=== PATIENT | male | born 1950 | race Caucasian/White ===

== ENCOUNTER → 2016-09-30 | Outpatient (CLI) | payer BC ==
[~2016-09-30] MED LIST: ALL300 PO; ASPI-232 PO; GLC5 PO; LOSA50TA54 PO; METF-384 PO; PANT40TA PO; SILD100T PO; SIMV-151 PO; SYMIN/8045 INH
== END | disposition home or self-care (01) ==
LOC: C.LAB1850 13:18
PROVIDERS: ATTEND Urology
DX: R97.20 Elevated prostate specific antigen [PSA] (principal)

== ENCOUNTER → 2017-01-13 | Outpatient (CLI) | payer BC ==
[2017-01-13 12:57] LABS: CALCIUM 8.9 mg/dl (8.5-10.1)
[2017-01-13 12:58] LABS: ALT/SGPT 31 U/L (12-78); BLOOD UREA NITROGEN 8 mg/dl (7-18); BUN/CREATININE RATIO 9.5 (10-20); CARBON DIOXIDE 22 mmol/L (21-32); CHLORIDE 106 mmol/L (98-107); CHOLESTEROL 169 mg/dl (0-200); GLUCOSE 111 mg/dl (70-99); POTASSIUM 4.4 mmol/L (3.5-5.1); SODIUM 140 mmol/L (136-145); TRIGLYCERIDES 185 mg/dl (0-150); VERY LOW DENSITY LIPOPROT CALC 37 mg/dl
[2017-01-13 13:07] LABS: ALKALINE PHOSPHATASE 83 U/L (45-117); AST/SGOT 23 U/L (15-37); CHOLESTEROL/HDL RATIO 3.7; FERRITIN 53.8 ng/ml (8.0-388.0); HDL CHOLESTEROL 46 mg/dl; LDL CHOLESTEROL CALCULATED 86 mg/dl; TOTAL IRON BINDING CAPACITY 456 mcg/dl (250-450)
[2017-01-13 13:16] LABS: ESTIMATED AVERAGE GLUCOSE 108 mg/dl; HA1C FLAG Normal (Normal)
[2017-01-13 13:36] LABS: BASO % 0.3 %; BASO ABS # 0.02 K/uL (0-0.2); COMPLETE YES; EOS % 4.7 %; HEMATOCRIT 46.8 % (42-52); IG% 0.3 %; LYMPH % 23.8 %; LYMPH ABS # 1.42 K/uL (1.2-3.4); MEAN CELL VOLUME 90.2 fL (80-100); MEAN CORPUSCULAR HEMOGLOBIN 30.1 pg (25-34); MEAN CORPUSCULAR HGB CONC 33.3 g/dl (32-36); MEAN PLATELET VOLUME 11.2 fL (7.4-10.4); MONO % 9.9 %; PLATELET COUNT 223 K/uL (130-400); RED BLOOD COUNT 5.19 M/uL (4.7-6.1); WHITE BLOOD COUNT 5.96 K/uL (4.8-10.8)
== END | disposition home or self-care (01) ==
LOC: C.LABBFT 10:41
PROVIDERS: ATTEND Internal Medicine
DX: E11.29 Type 2 diabetes mellitus with other diabetic kidney complication (principal); D64.9 Anemia, unspecified

== ENCOUNTER → 2017-01-14 | Outpatient (CLI) | payer BC ==
--- NOTE | 2017-01-14 14:46 | DIAGNOSTIC IMAGING REPORT ---
CHEST 2 VIEWS ROUTINE CLINICAL HISTORY: COUGH dyspnea COMPARISON STUDY: No previous studies for comparison. FINDINGS: The bones soft tissues and hemidiaphragms are normal. The cardiomediastinal silhouette is normal. The lungs are clear. The pulmonary vasculature is normal. IMPRESSION: Negative chest. Electronically signed by: Maverikc Frost M.D. 01/14/2017 2:44 PM Dictated Date/Time: 01/14/2017 2:44 PM
== END | disposition home or self-care (01) ==
LOC: C.RAD1850 14:33
PROVIDERS: ATTEND Internal Medicine
DX: R05 Cough (principal)

== ENCOUNTER → 2017-01-17 | Outpatient (CLI) | payer BC ==
[2017-01-17 14:38] LABS: RATIO 11.2 mcg/mg (0-30.0)
== END | disposition home or self-care (01) ==
LOC: C.LABSPEC 12:34
PROVIDERS: ATTEND Internal Medicine
DX: E11.29 Type 2 diabetes mellitus with other diabetic kidney complication (principal)

== ENCOUNTER → 2017-01-28 | Outpatient (CLI) | payer BC ==
--- NOTE | 2017-01-28 09:49 | DIAGNOSTIC IMAGING REPORT ---
CHEST CT WITHOUT CONTRAST CT DOSE: 492.64 mGy.cm HISTORY: Dyspnea R05 [id number] TECHNIQUE: Multiaxial CT images of the chest were performed without contrast. COMPARISON: None. FINDINGS: Subtle interstitial change in the right midlung region. No well-defined focal infiltrative process. Slight peribronchial prominence throughout both hemithoraces. No significant hilar or mediastinal adenopathy. Several calcified hilar and mediastinal nodes. Mild atherosclerotic change thoracic aorta with no evidence for aneurysm. IMPRESSION: 1. Mild nonspecific interstitial change primarily in the right upper to right mid lung regions. 2. No evidence for consolidative infiltrative process. 3. Diagnostic considerations include a low-grade nonspecific interstitial pneumonitis versus nonspecific interstitial pulmonary fibrotic change. 4. Chronic granulomatous change as discussed. Electronically signed by: Maverick Frost M.D. 01/28/2017 9:47 AM Dictated Date/Time: 01/28/2017 9:44 AM
== END | disposition home or self-care (01) ==
LOC: C.CTS 09:29
PROVIDERS: ATTEND Internal Medicine
DX: R05 Cough (principal)

== ENCOUNTER → 2017-02-28 | Day surgery (SDC) | payer BC ==
[2017-02-11 13:21] VITALS: Ht 185.4 cm; Wt 95.5 kg
[~2017-02-28] VITALS: Ht 185.4 cm; Wt 95.5 kg
[~2017-02-28] MED LIST changes: +LIDOCAINE HCL 2% 2 ML VIAL (20MG/ML) ONE; +PROPOFOL IV EMULSION 10 MG/ML 20 ML VIAL IV ONE; +SODIUM CHLORIDE 0.9% 500ML 500 ML IV ONE
--- NOTE | 2017-02-28 10:58 | Endo History and Physical ---
History & Physical Date of Service: Feb 28, 2017. Chief Complaint: SCREENING FOR COLON CANCER Referring Physician: DR. MEZA History of Present Illness 66 yo CM who presents for screening colonoscopy. Past Medical History Diabetes, High Cholesterol, Hypertension Past Surgical History Hx Cardiac Surgery: No Hx Internal Defibrillator: No Hx Pacemaker: No Hx Abdominal Surgery: No Hx of Implantable Prosthesis: No Hx Post-Op Nausea and Vomiting: No Hx Cancer Surgery: No Hx Thoracic Surgery: No Hx Orthopedic: Yes (LT/RT GANGLION CYST REMOVAL) Hx Urinary Tract Surgery: No Family History None Social History Smoking Status: Former Smoker Hx Substance Use: No Hx Alcohol Use: No Allergies Coded Allergies: No Known Allergies (Verified , 02/28/17) Current Medications Reported Home Medications Medications Dose Route/Sig Max Daily Dose Days Date Category Symbicort 80/4.5 Inhaler (Budesonide/Formoterol Fumarate) Aero 2 Puffs INH BID 02/28/17 Reported Protonix (Pantoprazole Sodium) 40 Mg Tab 40 Mg PO QPM 02/11/17 Reported Viagra (Sildenafil Citrate) 100 Mg Tab 100 Mg PO PRN 06/21/14 Reported Cozaar (Losartan Potassium) 50 Mg Tab 50 Mg PO QAM 06/21/14 Reported Simvastatin 20 Mg Tab 1 Tab PO HS 06/21/14 Reported Aspir-81 (Aspirin) 81 Mg Tab 1 Tab PO QPM 06/21/14 Reported Allopurinol 300 Mg Tab 1 Tab PO QAM 06/21/14 Reported Glucophage (Metformin Hcl) 1,000 Mg Tab 1,000 Mg PO BID 06/21/14 Reported Glipizide 5 Mg Tab 5 Mg PO QPM 06/21/14 Reported Vital Signs Weight (Kilograms): 95.45 Height (Feet): 6 Height (Inches): 1 Date Time Temp Pulse Resp B/P (MAP) Pulse Ox O2 Delivery O2 Flow Rate FiO2 02/28/17 10:14 36.6 73 18 151/87 (108) 96 Room Air Physical Exam General Appearance: WD/WN, no apparent distress Respiratory/Chest: Auscultation: breath sounds normal Cardiovascular: Heart Auscultation: RRR Abdomen: Bowel Sounds: normal Inspection & Palpation: soft, non-distended, no tenderness, guarding & rebound Assessment and Plan Assessment: 66 yo CM who presents for screening colonoscopy. Plan: Proceed with colonoscopy.
--- NOTE | 2017-02-28 11:44 | Discharge Instructions ---
Endoscopy Patient Instructions Date / Procedure(s) Performed Feb 28, 2017. Colonoscopy Allergy Information Coded Allergies: No Known Allergies (Verified , 02/28/17) Discharge Date / Findings Feb 28, 2017. Rectal polyps Internal hemorrhoids Medication Instructions Stopped Medication(s): ASPIRIN LAST DOSE 02/21/17 OK to resume all medications today as prescribed Reported Home Medications Medications Dose Route/Sig Max Daily Dose Days Date Category Symbicort 80/4.5 Inhaler (Budesonide/Formoterol Fumarate) Aero 2 Puffs INH BID 02/28/17 Reported Protonix (Pantoprazole Sodium) 40 Mg Tab 40 Mg PO QPM 02/11/17 Reported Viagra (Sildenafil Citrate) 100 Mg Tab 100 Mg PO PRN 06/21/14 Reported Cozaar (Losartan Potassium) 50 Mg Tab 50 Mg PO QAM 06/21/14 Reported Simvastatin 20 Mg Tab 1 Tab PO HS 06/21/14 Reported Aspir-81 (Aspirin) 81 Mg Tab 1 Tab PO QPM 06/21/14 Reported Allopurinol 300 Mg Tab 1 Tab PO QAM 06/21/14 Reported Glucophage (Metformin Hcl) 1,000 Mg Tab 1,000 Mg PO BID 06/21/14 Reported Glipizide 5 Mg Tab 5 Mg PO QPM 06/21/14 Reported Provider Instructions Activity Restrictions - No exercising or heavy lifting for 24 hours. - Do not drink alcohol the day of the procedure. - Do not drive a car or operate machinery until the day after the procedure. - Do not make any important decisions or sign important papers in 24 hours after the procedure. Following Day: - Return to full activity which may include returning to work/school. Diet Start your diet with liquids and light foods (jello, soup, juice, toast). Then eat your usual diet if not nauseated. Treatment For Common After Affects For mild abdominal pain, bloating, or excessive gas: - Rest - Eat lightly - Lie on right side Follow-Up Information Follow-up with DR. MEZA as scheduled Anesthesia Information What You Should Know You have had a procedure that required some medicine to reduce anxiety and discomfort. This treatment is called moderate sedation. After receiving the treatment, you may be sleepy, but you will be able to breathe on your own. The effects of the treatment may last for several hours. Follow these instructions along with Activity/Diet recommendations noted above: * Do NOT do anything where dizziness or clumsiness would be dangerous. * Rest quietly at home today, then you can be up and about tomorrow. * Have a responsible person stay with you the rest of today. * You may have had an I.V. today. If so, you may take the dressing off later today. Recommendations Call your doctor if: * Trouble breathing * Continuous vomiting for more than 24 hours * Temperature above 101 degrees * Severe abdominal pain or bloating * Pain not relieved by pain medicine ordered * There is increased drainage or redness from any incision * A large amount of rectal bleeding greater than 2-3 tablespoons. (If you had a polyp/s removed or have hemorrhoids, a small amount of blood - from the rectum is to be expected.) * You have any unanswered questions or concerns. IN THE EVENT OF A SERIOUS EMERGENCY, GO TO THE NEAREST EMERGENCY ROOM Your discharge instructions were prepared by provider Alex Myers. Patient Instructions Signature Page Donavan Downs Patient (or Guardian) Signature/Date: I have read and understand the instructions given to me by my caregivers. Caregiver/RN/Doctor Signature/Date: The above-named patient and/or guardian has received patient instructions on this date. + Original Patient Signature Page (only) stays with chart. Please make copy for patient.
--- NOTE | 2017-02-28 11:49 | GI REPORT ---
Procedure Date: 02/28/2017 10:28 AM Procedure: Colonoscopy Indications: Screening for colorectal malignant neoplasm Medicines: Monitored Anesthesia Care Complications: No immediate complications. Estimated Blood Loss: Estimated blood loss: none. Procedure: Pre-Anesthesia Assessment: - Prior to the procedure, a History and Physical was performed, and patient medications and allergies were reviewed. The patient's tolerance of previous anesthesia was also reviewed. The risks and benefits of the procedure and the sedation options and risks were discussed with the patient. All questions were answered, and informed consent was obtained. Prior Anticoagulants: The patient has taken aspirin, last dose was 7 days prior to procedure. ASA Grade Assessment: III - A patient with severe systemic disease. After reviewing the risks and benefits, the patient was deemed in satisfactory condition to undergo the procedure. After I obtained informed consent, the scope was passed under direct vision. Throughout the procedure, the patient's blood pressure, pulse, and oxygen saturations were monitored continuously. The scope was introduced through the anus and advanced to the terminal ileum. The colonoscopy was performed without difficulty. The patient tolerated the procedure well. The quality of the bowel preparation was good. The terminal ileum, ileocecal valve, appendiceal orifice, and rectum were photographed. Findings: Two sessile polyps were found in the rectum. The polyps were 2 to 4 mm in size. These polyps were removed with a cold snare. Resection and retrieval were complete. Non-bleeding internal hemorrhoids were found during retroflexion. The hemorrhoids were small. Impression: - Two 2 to 4 mm polyps in the rectum, removed with a cold snare. Resected and retrieved. - Non-bleeding internal hemorrhoids. Recommendation: - Resume previous diet. - Continue present medications. - Repeat colonoscopy for surveillance based on pathology results. - Return to primary care physician as previously scheduled. Alex Myers DO 02/28/2017 11:48:48 AM This report has been signed electronically. Note Initiated On: 02/28/2017 10:28 AM I attest to the content of the Intraoperative Record and orders documented therein, exceptions below
[2017-02-28 11:52] VITALS: BP 139/97; PULSE 73; O2SAT 96
--- NOTE | 2017-02-28 11:57 | Anesthesiology Progress Note ---
Anesthesia Post Op Note Date & Time Feb 28, 2017 at 11:57 Vital Signs Pain Intensity: 0 Vital Signs Past 12 Hours Date Time Temp Pulse Resp B/P (MAP) Pulse Ox O2 Delivery O2 Flow Rate FiO2 02/28/17 11:52 73 20 139/97 (111) 96 Room Air 02/28/17 11:35 73 18 137/75 (95) 96 Room Air 02/28/17 11:20 73 16 106/60 (75) 96 Room Air 02/28/17 10:14 36.6 73 18 151/87 (108) 96 Room Air Notes Mental Status: alert / awake / arousable, participated in evaluation Pt Amnestic to Procedure: Yes Nausea / Vomiting: adequately controlled Pain: adequately controlled Airway Patency, RR, SpO2: stable & adequate BP & HR: stable & adequate Hydration State: stable & adequate Anesthetic Complications: no major complications apparent
== END | disposition home or self-care (01) ==
LOC: C.GI 09:45
PROVIDERS: ATTEND Internal Medicine
DX: Z12.11 Encounter for screening for malignant neoplasm of colon (principal); K62.1 Rectal polyp; K64.8 Other hemorrhoids; E11.9 Type 2 diabetes mellitus without complications; E78.00 Pure hypercholesterolemia, unspecified; I10 Essential (primary) hypertension; Z87.891 Personal history of nicotine dependence; Z79.82 Long term (current) use of aspirin; Z79.84 Long term (current) use of oral hypoglycemic drugs; E78.5 Hyperlipidemia, unspecified

== ENCOUNTER → 2017-07-20 | Outpatient (CLI) | payer BC ==
[~2017-07-20] MED LIST changes: -LIDOCAINE HCL 2% 2 ML VIAL (20MG/ML) ONE; -PROPOFOL IV EMULSION 10 MG/ML 20 ML VIAL IV ONE; -SODIUM CHLORIDE 0.9% 500ML 500 ML IV ONE
[2017-07-20 12:26] LABS: HEMATOCRIT 45.1 % (42-52); MEAN CORPUSCULAR HEMOGLOBIN 28.7 pg (25-34); MEAN CORPUSCULAR HGB CONC 31.9 g/dl (32-36); MEAN PLATELET VOLUME 10.9 fL (7.4-10.4); PLATELET COUNT 235 K/uL (130-400); RED BLOOD COUNT 5.01 M/uL (4.7-6.1); WHITE BLOOD COUNT 6.94 K/uL (4.8-10.8)
[2017-07-20 13:11] LABS: ESTIMATED AVERAGE GLUCOSE 100 mg/dl; HA1C FLAG Normal (Normal)
[2017-07-20 13:15] LABS: ALT/SGPT 25 U/L (12-78); AST/SGOT 13 U/L (15-37); BLOOD UREA NITROGEN 12 mg/dl (7-18); BUN/CREATININE RATIO 13.3 (10-20); CALCIUM 8.6 mg/dl (8.5-10.1); CARBON DIOXIDE 27 mmol/L (21-32); CHLORIDE 103 mmol/L (98-107); CHOLESTEROL 138 mg/dl (0-200); GLUCOSE 113 mg/dl (70-99); POTASSIUM 4.2 mmol/L (3.5-5.1); SODIUM 135 mmol/L (136-145)
[2017-07-20 13:26] LABS: ALB/GLOB RATIO 0.9 (0.9-2); ALKALINE PHOSPHATASE 75 U/L (45-117); CHOLESTEROL/HDL RATIO 2.2; HDL CHOLESTEROL 63 mg/dl; LDL CHOLESTEROL CALCULATED 57 mg/dl; TRIGLYCERIDES 88 mg/dl (0-150); VERY LOW DENSITY LIPOPROT CALC 18 mg/dl
== END | disposition home or self-care (01) ==
LOC: C.LABBFT 10:22
PROVIDERS: ATTEND Urology
DX: R97.20 Elevated prostate specific antigen [PSA] (principal); E11.29 Type 2 diabetes mellitus with other diabetic kidney complication

== ENCOUNTER → 2017-10-19 | Outpatient (CLI) | payer BC ==
[2017-10-19 12:47] LABS: BLOOD UREA NITROGEN 7 mg/dl (7-18); CREATININE 0.92 mg/dl (0.60-1.40)
== END | disposition home or self-care (01) ==
LOC: C.LABBFT 09:18
PROVIDERS: ATTEND Urology
DX: R97.20 Elevated prostate specific antigen [PSA] (principal); N40.1 Benign prostatic hyperplasia with lower urinary tract symptoms

== ENCOUNTER → 2017-10-31 | Outpatient (CLI) | payer BC ==
[~2017-10-31] MED LIST changes: +GADAVIST IV PRN
--- NOTE | 2017-10-31 11:49 | DIAGNOSTIC IMAGING REPORT ---
PROSTATE MRI COMBO CLINICAL HISTORY: 67 years-old Male presenting with R97.20 Elevated PSA - 6.530. PSA 6.5 ng/mL. TECHNIQUE: Multisequence, multiplanar MR imaging of the prostate was performed before and after the administration of intravenous contrast. Additional postprocessing was performed on a separate [employer] workstation by the radiologist for 3-D volumetric segmentation of the prostate and contouring of region(s) of interest (ALE) for targeting. IV contrast: 9.5 cc intravenous Gadavist COMPARISON: None. FINDINGS: Prostate: The prostate measures 4.8 x 3.9 x 4.1 cm (DynaCAD prostate boundary segmentation volume 42 mL). Moderate changes of benign prostatic hyperplasia. Precontrast T1 weighted imaging demonstrates no evidence of intrinsic T1 hyperintensity to suggest hemorrhage. Suspicious lesion(s) described below: Lesion (DynaCAD ALE) 1: Location: Right posteromedial peripheral zone at the mid gland. The lesion does not extend across the midline. Size: 9 mm (as measured on ADC for PZ lesion and T2WI for TZ lesion) T2W: 4. Circumscribed, homogeneous moderately hypointense lesion. No evidence of extraprostatic extension, seminal vesicle invasion, or neurovascular bundle involvement. DWI: 3. Focal mildly/moderately hypointense on ADC and isointense/mildly hyperintense on high b-value DWI. DCE: Positive. Focal enhancement corresponding to a suspicious finding, earlier or contemporaneous with adjacent normal tissue. PI-RADS: 4. Clinically significant cancer is likely to be present. There is a single focus of nonspecific decreased T2 signal within the left seminal vesicle Bladder: Normal. Bowel: There is extensive sigmoid diverticulosis. There is borderline rectal sigmoid wall thickening. Peritoneum: No free fluid in the pelvis. Lymph nodes: No lymphadenopathy in the visualized portion of the pelvis. Vasculature: Iliac vessels patent. Abdominal wall: Normal. Osseous structures: Normal bone marrow signal intensity. IMPRESSION: 1. 9 mm lesion in the right peripheral zone at the mid gland. PI-RADS: 4. Clinically significant cancer is likely to be present. This lesion has been segmented for targeted biopsy. 2. Benign prostatic hyperplasia. Electronically signed by: Andrew Ambriz M.D. 10/31/2017 11:47 AM Dictated Date/Time: 10/31/2017 11:31 AM
== END | disposition home or self-care (01) ==
LOC: C.MRIBC 09:46
PROVIDERS: ATTEND Urology
DX: R97.20 Elevated prostate specific antigen [PSA] (principal); N40.0 Benign prostatic hyperplasia without lower urinary tract symptoms

== ENCOUNTER → 2017-12-15 | Outpatient (CLI) | payer BC ==
[~2017-12-15] MED LIST changes: -GADAVIST IV PRN
== END | disposition home or self-care (01) ==
LOC: C.PATHSPEC 19:05
PROVIDERS: ATTEND Urology
DX: R97.20 Elevated prostate specific antigen [PSA] (principal); C61 Malignant neoplasm of prostate

== ENCOUNTER 2023-02-03 16:04 | Inpatient (IN) ==
[2023-02-03] MEDS ORDERED: VANCOMYCIN HCL 1,750 MG in SODIUM CHLORIDE 0.9% 500 ML IV ONE (16:53)
[2023-02-03] MEDS ORDERED: PIPERACILLIN/TAZOBACTAM 4.5 GM/120 ML BAG IV ONE (16:53)
[2023-02-03] MEDS ORDERED: VANCOMYCIN CONSULT ACTIVE PRN ×2 (16:53→21:05)
[2023-02-03] MEDS ORDERED: SODIUM CHLORIDE 0.9% 1000ML 1,000 ML IV ONE (16:58)
--- NOTE | 2023-02-03 17:00 | Emergency Department Note ---
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 She started about 3 weeks ago. Tried Neosporin at home but given worsening follow-up with his doctor yesterday and started on a dose of Levaquin last evening. Outpatient x-ray today was concerning for bone infection referred in. Denies fever or chills. States blood sugars been fairly well controlled. Denies a history of resistant infections in the past. PAST MEDICAL HISTORY: As noted above MEDICATIONS: Reviewed home medications SOCIAL HISTORY: , distant former smoker PHYSICAL EXAM: GENERAL: alert and oriented in no acute distress on stretcher Head: normocephalic and atraumatic EYES: No injection, discharge or icterus. NECK: Trachea midline. ENT: Mucous membranes pink and moist. LUNGS: Airway patent. No retractions. Breath sounds clear HEART: Regular rate and rhythm. No chest wall tenderness ABDOMEN: Soft and non-tender, without guarding or rebound. SKIN: Acyanotic, warm, dry EXTREMITIES: Without swelling, tenderness or deformity except for some slight erythema and swelling to the left foot with an approximate 1 to 2 cm ulceration and erythematous wound on the pad of the left great toe. NEUROLOGICAL: No aphasia. No facial droop or slurred speech. Ambulatory. Mild diminished sensation symmetrically bilaterally of the midfoot distal. Patient's laboratory studies and imaging reviewed. Differential includes Cellulitis, abscess, MRSA infection, necrotizing fasciitis, osteomyelitis as well as other pathologies. IMPRESSION/MEDICAL DECISION MAKING: Patient does not appear septic on clinical exam. Blood Gram stain reassuring but recultured today and a surface culture obtained. X-ray reviewed from today in the outpatient setting with evidence of possible osteomyelitis as well as a distal tuft fracture. Inflammatory markers ordered. Broad-spectrum antibiotics ordered in discussion with pharmacy. Discussed with the hospitalist team. They wish me to discuss with the orthopedic team. Discussed with [facility] and reached out to our community education specialist Dr. Kimbrough who will evaluate the patient recommended a CT of the toe/foot. The wound here causing some generalized erythema but I doubt this represents DVT. DIAGNOSIS: Left great toe osteomyelitis, diabetic foot infection DISPOSITION: Hospitalist will evaluate Patient was agreeable with this plan. 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 COPD (chronic obstructive pulmonary disease) Ex-cigarette smoker Hiatal hernia Hypercholesteremia Hypertension Low iron REASON FOR UPCOMING PROCEDURE Prostate cancer (12/15/17) "Benign prostate biopsy April 18, 2013 Rising PSA, pretreatment PSA 6.180 Status post ultrasound-guided biopsies December 15, 2017 Adenocarcinoma the prostate [place] 3+3 Prostate volume 36.4 Prostate density 0.097." On 01/11/18 09:17 Rose Mary eLe wrote "Rising PSA, pretreatment PSA 6.180 Status post ultrasound-guided biopsies December 15, 2017 Adenocarcinoma the prostate [place] 3+3 Prostate volume 36.4 Prostate density 0.097." Trochanteric bursitis, right hip CORTISONE INJECTION 2 WEEKS AGO Trochanteric bursitis, right hip Surgical History History of colonoscopy (11/17/09) one hyperplastic, recheck in 10 years History of endoscopy S/P LASIK surgery of both eyes Family History Mother Tobacco use Congestive heart failure (CHF) Father COPD (chronic obstructive pulmonary disease) Tobacco use BPH (benign prostatic hyperplasia) Grandfather Prostate cancer Denies family history of Ovarian cancer Myocardial infarction Breast cancer Colorectal cancer Social History Smoking Status: Former smoker Tobacco Type: Cigarettes Age Started Using Tobacco: 20; Age Quit Using Tobacco: 52; packs per day: 2; Second Hand Exposure: Yes; Do You Dip or Chew Tobacco: No; Hx Alcohol Use: Yes Alcohol Intake Frequency: 2-3 x/Week Hx Substance Use: No Preferred Language: [place] Communication Ability: Effective Visual Impairment: No Limitations Hearing Ability: Normal Administrative Clerk Required: No Beliefs That Will Affect Care: None marital status: Current Living Situation: Spouse current occupational status: employed current occupation: [employer] Feels Safe at Home: Yes Childhood Exposure to Second-Hand Smoke: Yes Diet: regular caffeine: Yes Dental Care, Regularly: Yes Physical Activity Frequency: 3-4 Times per Week Seatbelt Use: always Sunscreen Use: Yes Assistive Devices: None Allergies Allergies Allergy/AdvReac Type Severity Reaction Status Date / Time No Known Allergies Allergy Verified 02/02/23 14:38 Home Meds Home Medications Medication Instructions Recorded Confirmed aspirin 81 mg tablet 81 mg PO QPM 03/06/19 02/02/23 blood sugar diagnostic (OneTouch #10 ea 03/06/19 02/02/23 Ultra Blue Test Strip) lancets (ScratchJrTouch UltraSoft #50 ea 03/06/19 02/02/23 Lancets) Previous Rx's Medication Instructions Recorded albuterol sulfate 90 mcg/actuation 2 puff inhalation Q6H PRN 05/04/21 aerosol inhaler shortness of breath or wheezing #8.5 grams blood-glucose meter (OneTouch #1 ea 04/06/22 Ultra2 Meter kit) lancets 30 gauge (OneTouch Delica #100 ea 04/07/22 Lancets) blood sugar diagnostic (OneTouch #100 ea 04/09/22 Ultra Test strips) sildenafil (pulm.hypertension) 20 100 mg PO UD PRN Sexual Activity 06/29/22 mg tablet #90 tabs umeclidinium 62.5 mcg-vilanterol 1 inh inhalation DAILY #180 ea 10/05/22 25 mcg/actuation powdr for inhalation (Anoro Ellipta) allopurinol 300 mg tablet See Rx Instructions .Route 10/08/22 .COMPLEX #90 tabs metformin 1,000 mg tablet 1,000 mg PO BID #180 tabs 10/08/22 olmesartan 20 mg tablet 20 mg PO DAILY #90 tabs 10/08/22 pantoprazole 40 mg tablet,delayed 40 mg PO QAM #90 tabs 10/08/22 release rosuvastatin 10 mg tablet 10 mg PO DAILY #90 tabs 10/08/22 sildenafil 100 mg tablet 100 mg PO DAILY PRN sexual 10/08/22 activity #30 tabs semaglutide 0.25 mg or 0.5 mg (2 0.5 mg (0.736 mL) subcut ONCE #3 mL 01/10/23 mg/3 mL) subcutaneous pen injector (Ozempic) levofloxacin 500 mg tablet 500 mg PO Q24H 2 weeks #14 tabs 02/02/23 Results & Data (ED) Vital Signs Vital Signs - 24 hr 02/03/23 16:11 02/03/23 18:00 Temperature 36.4 C L Temperature Source Temporal Artery Scan Pulse Rate 111 H Pulse Rate [Left Finger] 79 Respiratory Rate 18 18 Blood Pressure 118/79 Blood Pressure [Right Arm] 125/68 Blood Pressure Mean 92 Blood Pressure Mean [Right Arm] 87 Blood Pressure Position Sitting Pulse Oximetry 94 95 Oxygen Delivery Method Room Air Room Air Sepsis Recent Fever Within 48 Hours No Sepsis New/Unexplained Change in Mental Status N/A Sepsis Action Taken by Nursing No Action Required Laboratory Data 02/03/23 16:32 02/03/23 16:32 Lab Results 02/03/23 02/03/23 02/03/23 Range/Units 16:32 16:32 16:32 WBC 10.88 H (4.8-10.8) K/ul RBC 4.88 (4.70-6.10) M/uL Hgb 14.3 (14.0-18.0) g/dl Hct 44.0 (42.0-52.0) % MCV 90.2 (80.0-100.0) fL MCH 29.3 (25.0-34.0) pg MCHC 32.5 (32.0-36.0) g/dL RDW Std Deviation 43.7 (36.4-46.3) fL RDW Coeff of Ayde 13.2 (11.5-14.5) % Plt Count 301 (130-400) K/uL MPV 10.2 (9.4-12.4) fL Immature Gran % (Auto) 0.5 % Neut % (Auto) 73.9 % Lymph % (Auto) 13.7 % [place] % (Auto) 7.7 % Eos % (Auto) 3.8 % Baso % (Auto) 0.4 % Neut # (Auto) 8.05 H (1.40-6.50) K/uL Lymph # (Auto) 1.49 (1.2-3.4) K/uL [place] # (Auto) 0.84 H (0.11-0.59) K/uL Eos # (Auto) 0.41 (0-0.50) K/uL Baso # (Auto) 0.04 (0-0.2) K/uL Immature Gran # (Auto) 0.05 (0.01-0.20) K/uL ESR 53 H (0-20) mm/hr PT 11.1 (9.0-12.0) Seconds INR 1.0 (0.9-1.1) Sodium (136-145) mmol/L Potassium (3.5-5.1) mmol/L Chloride (98-107) mmol/L Carbon Dioxide (21-32) mmol/L Anion Gap (3-11) BUN (6-23) mg/dl Creatinine (0.6-1.4) mg/dl Est Cr Clr Drug Dosing ml/min Est GFR ( Amer) ml/min Est GFR (Non-Af Amer) ml/min BUN/Creatinine Ratio (10-20) Glucose (70-99(Fasting)) mg/dl Lactate (0.4-2.0) mmol/L Calcium (8.6-10.3) mg/dl Total Bilirubin (0.2-1.0) mg/dl AST (13-39) U/L ALT (7-52) U/L Alkaline Phosphatase (34-104) U/L C-Reactive Protein (0-0.5) mg/dl Total Protein (6.0-8.3) gm/dl Albumin (3.4-5.0) gm/dl Globulin (2.5-4.0) gm/dl Albumin/Globulin Ratio (0.9-2) Procalcitonin (0-0.5) ng/ml SARS-CoV-2, RNA, NAAT (NEGATIVE) 02/03/23 02/03/23 02/03/23 Range/Units 16:32 16:32 16:32 WBC (4.8-10.8) K/ul RBC (4.70-6.10) M/uL Hgb (14.0-18.0) g/dl Hct (42.0-52.0) % MCV (80.0-100.0) fL MCH (25.0-34.0) pg MCHC (32.0-36.0) g/dL RDW Std Deviation (36.4-46.3) fL RDW Coeff of Ayde (11.5-14.5) % Plt Count (130-400) K/uL MPV (9.4-12.4) fL Immature Gran % (Auto) % Neut % (Auto) % Lymph % (Auto) % [place] % (Auto) % Eos % (Auto) % Baso % (Auto) % Neut # (Auto) (1.40-6.50) K/uL Lymph # (Auto) (1.2-3.4) K/uL [place] # (Auto) (0.11-0.59) K/uL Eos # (Auto) (0-0.50) K/uL Baso # (Auto) (0-0.2) K/uL Immature Gran # (Auto) (0.01-0.20) K/uL ESR (0-20) mm/hr PT (9.0-12.0) Seconds INR (0.9-1.1) Sodium 140 (136-145) mmol/L Potassium 4.3 (3.5-5.1) mmol/L Chloride 107 (98-107) mmol/L Carbon Dioxide 21 (21-32) mmol/L Anion Gap 12 H (3-11) BUN 17 (6-23) mg/dl Creatinine 0.99 (0.6-1.4) mg/dl Est Cr Clr Drug Dosing 76.2 ml/min Est GFR ( Amer) 89.1 ml/min Est GFR (Non-Af Amer) 76.8 ml/min BUN/Creatinine Ratio 17.2 (10-20) Glucose 135 H (70-99(Fasting)) mg/dl Lactate 2.3 H* (0.4-2.0) mmol/L Calcium 9.6 (8.6-10.3) mg/dl Total Bilirubin 0.4 (0.2-1.0) mg/dl AST 16 (13-39) U/L ALT 16 (7-52) U/L Alkaline Phosphatase 95 (34-104) U/L C-Reactive Protein 3.14 H (0-0.5) mg/dl Total Protein 8.0 (6.0-8.3) gm/dl Albumin 4.4 (3.4-5.0) gm/dl Globulin 3.6 (2.5-4.0) gm/dl Albumin/Globulin Ratio 1.2 (0.9-2) Procalcitonin < 0.05 (0-0.5) ng/ml SARS-CoV-2, RNA, NAAT (NEGATIVE) 02/03/23 Range/Units 17:24 WBC (4.8-10.8) K/ul RBC (4.70-6.10) M/uL Hgb (14.0-18.0) g/dl Hct (42.0-52.0) % MCV (80.0-100.0) fL MCH (25.0-34.0) pg MCHC (32.0-36.0) g/dL RDW Std Deviation (36.4-46.3) fL RDW Coeff of Ayde (11.5-14.5) % Plt Count (130-400) K/uL MPV (9.4-12.4) fL Immature Gran % (Auto) % Neut % (Auto) % Lymph % (Auto) % [place] % (Auto) % Eos % (Auto) % Baso % (Auto) % Neut # (Auto) (1.40-6.50) K/uL Lymph # (Auto) (1.2-3.4) K/uL [place] # (Auto) (0.11-0.59) K/uL Eos # (Auto) (0-0.50) K/uL Baso # (Auto) (0-0.2) K/uL Immature Gran # (Auto) (0.01-0.20) K/uL ESR (0-20) mm/hr PT (9.0-12.0) Seconds INR (0.9-1.1) Sodium (136-145) mmol/L Potassium (3.5-5.1) mmol/L Chloride (98-107) mmol/L Carbon Dioxide (21-32) mmol/L Anion Gap (3-11) BUN (6-23) mg/dl Creatinine (0.6-1.4) mg/dl Est Cr Clr Drug Dosing ml/min Est GFR ( Amer) ml/min Est GFR (Non-Af Amer) ml/min BUN/Creatinine Ratio (10-20) Glucose (70-99(Fasting)) mg/dl Lactate (0.4-2.0) mmol/L Calcium (8.6-10.3) mg/dl Total Bilirubin (0.2-1.0) mg/dl AST (13-39) U/L ALT (7-52) U/L Alkaline Phosphatase (34-104) U/L C-Reactive Protein (0-0.5) mg/dl Total Protein (6.0-8.3) gm/dl Albumin (3.4-5.0) gm/dl Globulin (2.5-4.0) gm/dl Albumin/Globulin Ratio (0.9-2) Procalcitonin (0-0.5) ng/ml SARS-CoV-2, RNA, NAAT NEGATIVE (NEGATIVE) Administered Medications Benzonatate (Benzonatate 100 Mg Capsule) 100 mg PO TID PRN PRN Reason: Cough Stop: 03/05/23 21:46 Last Admin: 02/03/23 22:39 Dose: 100 mg Documented By: RITU Vancomycin HCl 1,000 mg/ (Sodium Chloride) 270 mls @ 200 mls/hr IV Q12H [facility] Stop: 03/18/23 00:00 Last Admin: 02/03/23 23:11 Dose: 200 mls/hr Documented By: RITU Parenteral Electrolytes (Plasma-Lyte A Ph 7.4) 1,000 mls @ 120 mls/hr IV .Q8H20M [facility] Stop: 02/04/23 13:44 Last Admin: 02/03/23 22:06 Dose: 120 mls/hr Documented By: RITU Insulin Glargine (Lantus Per Unit Charge) 5 units SQ BID [facility] Stop: 03/05/23 21:04 Last Admin: 02/03/23 22:09 Dose: Not Given Documented By: RITU Melatonin (Melatonin 3 Mg Tab) 3 mg PO HS PRN PRN Reason: Sleep Stop: 03/05/23 21:46 Last Admin: 02/03/23 22:39 Dose: 3 mg Documented By: RITU Discontinued Medications Vancomycin HCl 1,750 mg/ (Sodium Chloride) 535 mls @ 200 mls/hr IV NOW ONE Stop: 02/03/23 19:33 Last Admin: 02/03/23 19:17 Dose: 200 mls/hr Documented By: PEDRO Piperacillin Sod/Tazobactam Sod (Zosyn) 4.5 gm in 120 mls @ 240 mls/hr IV NOW ONE Stop: 02/03/23 17:22 Last Infusion: 02/03/23 18:59 Dose: 0 mls/hr Documented By: Admin: 02/03/23 17:25 Dose: 240 mls/hr Documented By: FELIPE Sodium Chloride (Nss 1000ml) 1,000 mls @ 999 mls/hr IV .Q1H1M ONE Stop: 02/03/23 17:58 Last Infusion: 02/03/23 19:20 Dose: 0 mls/hr Documented By: Admin: 02/03/23 17:25 Dose: 999 mls/hr Documented By: FELIPE Imaging Data Radiologist's Impression: Foot CT 02/03/23 17:07 Exam(s): CT LEFT FOOT Without Contrast EXAM: CT Left Lower Extremity Without Intravenous Contrast, Foot CLINICAL HISTORY: Reason for exam: toe infection, ?osteo. TECHNIQUE: Axial computed tomography images of the left foot without intravenous contrast. CTDI is 15.57 mGy and DLP is 319.44 mGy-cm. Automated exposure control was utilized for the study. A dose lowering technique was utilized adhering to the principles of ALARA. COMPARISON: No relevant prior studies available. FINDINGS: Ulcer of the great toe with subcutaneous edema that extends to the distal phalanx. Mild erosive changes of the distal phalanx tuft, concerning for early osteomyelitis. No fluid collection or abscess. No metatarsal fracture. No Lisfranc malalignment. Intact medial and lateral malleoli papered osseous demineralization. IMPRESSION: Early osteomyelitis of the great toe distal tuft. 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
[2023-02-03 17:08] LABS: Basophils # (auto) 0.04 K/uL (0-0.2); Basophils % (auto) 0.4 %; Eosinophils # (auto) 0.41 K/uL (0-0.50); Eosinophils % (auto) 3.8 %; Hemoglobin 14.3 g/dl (14.0-18.0); Immature Granulocytes # (auto) 0.05 K/uL (0.01-0.20); Immature Granulocytes % (auto) 0.5 %; Lymphocytes # (auto) 1.49 K/uL (1.2-3.4); Lymphocytes % (auto) 13.7 %; Mean Corpuscular Hemoglobin 29.3 pg (25.0-34.0); Mean Corpuscular Hgb Conc 32.5 g/dL (32.0-36.0); Mean Corpuscular Volume 90.2 fL (80.0-100.0); Mean Platelet Volume 10.2 fL (9.4-12.4); Monocytes # (auto) 0.84 K/uL (0.11-0.59); Monocytes % (auto) 7.7 %; Neutrophils # (auto) 8.05 K/uL (1.40-6.50); Neutrophils % (auto) 73.9 %; Platelet Count 301 K/uL (130-400); RDW Coefficient of Variation 13.2 % (11.5-14.5); RDW Standard Deviation 43.7 fL (36.4-46.3); Red Blood Count 4.88 M/uL (4.70-6.10); White Blood Count 10.88 K/ul (4.8-10.8)
[2023-02-03 17:22] LABS: Albumin Globulin Ratio 1.2 (0.9-2); Albumin Level 4.4 gm/dl (3.4-5.0); BUN Creatinine Ratio 17.2 (10-20); Bilirubin,Total 0.4 mg/dl (0.2-1.0); Calcium 9.6 mg/dl (8.6-10.3); Creatinine Clr Calc Pharmacy 76.2 ml/min; Est GFR (African American) 89.1 ml/min; Est GFR (Non-African American) 76.8 ml/min; Globulin 3.6 gm/dl (2.5-4.0); Potassium 4.3 mmol/L (3.5-5.1)
[2023-02-03 17:29] LABS: Prothrombin Time 11.1 Seconds (9.0-12.0)
--- NOTE | 2023-02-03 17:49 | History & Physical Report ---
Date of Service February 03, 2023 Assessment & Plan (1) Acute osteomyelitis of toe of left foot: Plan: Diabetic osteomyelitis Leukocytosis of 10.88 with neutrophilic predominance but no left shift ESR/CRP pending Lactate 2.3, tachycardic Tachycardia improving with fluids, lactate Received fluids repeat lactate pending BSG 135 Procalcitonin pending COVID pending X-ray left foot and toe:1. Focal skin ulceration at the distal left first toe with osteomyelitis at the distal tuft of the left first toe. 2. There is also small pathologic fracture at the distal tuft of the left first toe.3. Soft tissue swelling within the left first toe. Flattening of the second metatarsal head consistent with Freiberg's infraction. Distal left toe ulceration and erythema, see photo in HPI - Vanc/Zosyn given in ER. These are continued. No prior bone culture available -Idris with [facility] orthopedics by ER, commended following up with podiatry. Subsequently Dr. Kimbrough was consulted and will see patient this evening. CT recommended and pending - NPO. - Stress echocardiogram/: No evidence of inducible ischemia, stage I diastolic dysfunction, normal LV ejection fraction and systolic function, no significant valvular disease, poor exercise tolerance and low workload achieved at that time Hypertension Olmesartan held in anticipation of surgery Continue aspirin Hyperlipidemia Continue rosuvastatin Type II DM Semaglutide held Basal bolus weight-based while inpatient goal BSG [id number] COPD Continue home inhaler/formulary equivalent History of gout Allopurinol continued DVT prophylaxis: Pharmacal prophylaxis held pending surgical evaluation, Lovenox postop Diet: N.p.o., IVF M 120 cc/h CODE STATUS: (2) Ulcer of left great toe due to diabetes mellitus: (3) Diabetes mellitus with microalbuminuria: (4) 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 3 weeks ago noticed some blood and an ulcer on the LEFT big toe. Was treating with neosporin but did not improve at all. Has neuropathy so only feels pressur ein his foot, has not had any pain in the toe. No fevers, chills, or sweats. No nausea, vomtiing, or diarrhea. BSGs have actually been well controlled and recently started ozempic and BSG has been running 79-110. Saw PCP for routine checkup yesterday and got an XR of it today which showed osteo and referred esha to the ER. He did take a levaquin dose which was prescribed empirically. No hx of heart disease Hx COPD- on Anoro and well controlled. No recent wheezing, although had a summer cold a few weeks ago. Mild residual cough productive for clear sputum overall improving. No wheezing Medical History: Reviewed Medications: Reviewed Surgical History: Reviewed Family history: Reviewed Allergies: Reviewed. NKDA. Social History: Former smoker in [id number] years, rare social etoh use. Code Status: Full Code Allergies Allergy/AdvReac Type Severity Reaction Status Date / Time No Known Allergies Allergy Verified 02/02/23 14:38 Home Medications Medication Instructions Recorded Confirmed Type aspirin 81 mg tablet 81 mg PO QPM 03/06/19 02/02/23 History blood sugar diagnostic (TIDAL PETROLEUMTouch #10 ea 03/06/19 02/02/23 History Ultra Blue Test Strip) lancets (TIDAL PETROLEUMTouch UltraSoft #50 ea 03/06/19 02/02/23 History Lancets) albuterol sulfate 90 mcg/actuation 2 puff inhalation Q6H PRN 05/04/21 02/02/23 Rx aerosol inhaler shortness of breath or wheezing #8.5 grams blood-glucose meter (TIDAL PETROLEUMTouch #1 ea 04/06/22 02/02/23 Rx Ultra2 Meter kit) lancets 30 gauge (TIDAL PETROLEUMTouch Delica #100 ea 04/07/22 02/02/23 Rx Lancets) blood sugar diagnostic (TIDAL PETROLEUMTouch #100 ea 04/09/22 02/02/23 Rx Ultra Test strips) sildenafil (pulm.hypertension) 20 100 mg PO UD PRN Sexual Activity 06/29/22 02/02/23 Rx mg tablet #90 tabs umeclidinium 62.5 mcg-vilanterol 1 inh inhalation DAILY #180 ea 10/05/22 02/02/23 Rx 25 mcg/actuation powdr for inhalation (Anoro Ellipta) allopurinol 300 mg tablet See Rx Instructions .Route 10/08/22 02/02/23 Rx .COMPLEX #90 tabs metformin 1,000 mg tablet 1,000 mg PO BID #180 tabs 10/08/22 02/02/23 Rx olmesartan 20 mg tablet 20 mg PO DAILY #90 tabs 10/08/22 02/02/23 Rx pantoprazole 40 mg tablet,delayed 40 mg PO QAM #90 tabs 10/08/22 02/02/23 Rx release rosuvastatin 10 mg tablet 10 mg PO DAILY #90 tabs 10/08/22 02/02/23 Rx sildenafil 100 mg tablet 100 mg PO DAILY PRN sexual 10/08/22 02/02/23 Rx activity #30 tabs semaglutide 0.25 mg or 0.5 mg (2 0.5 mg (0.8 mL) subcut ONCE #3 mL 01/10/23 02/02/23 Rx mg/3 mL) subcutaneous pen injector (Ozempic) levofloxacin 500 mg tablet 500 mg PO Q24H 2 weeks #14 tabs 02/02/23 02/02/23 Rx 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 COPD (chronic obstructive pulmonary disease) Ex-cigarette smoker Hiatal hernia Hypercholesteremia Hypertension Low iron Prostate cancer (12/15/17) Trochanteric bursitis, right hip Trochanteric bursitis, right hip Surgical History History of colonoscopy (11/17/09) History of endoscopy S/P LASIK surgery of both eyes Family History Mother Tobacco use Congestive heart failure (CHF) Father COPD (chronic obstructive pulmonary disease) Tobacco use BPH (benign prostatic hyperplasia) Grandfather Prostate cancer Denies family history of Ovarian cancer Myocardial infarction Breast cancer Colorectal cancer Social History Smoking Status: Former smoker Tobacco Type: Cigarettes Age Started Using Tobacco: 20; Age Quit Using Tobacco: 52; packs per day: 2; Second Hand Exposure: Yes; Do You Dip or Chew Tobacco: No; Hx Alcohol Use: Yes Alcohol Intake Frequency: 2-3 x/Week Hx Substance Use: No Preferred Language: Bulgarian Communication Ability: Effective Visual Impairment: No Limitations Hearing Ability: Normal Student Success Coach Required: No Beliefs That Will Affect Care: None marital status: Current Living Situation: Spouse current occupational status: employed current occupation: [employer] Feels Safe at Home: Yes Childhood Exposure to Second-Hand Smoke: Yes Diet: regular caffeine: Yes Dental Care, Regularly: Yes Physical Activity Frequency: 3-4 Times per Week Seatbelt Use: always Sunscreen Use: Yes Assistive Devices: None Physical Exam Physical Exam: General: A&Ox3. NAD. Cooperative. HEENT: Atraumatic, normocephalic. Vision and hearing grossly intact Pulm: CTAB A&P. -wheezes, -rales, -rhonchi. Symmetrical chest rise. No increased work of breathing. No respiratory distress. Cardiac: RRR, -mrg. Radial pulses intact and symmetrical. Abdominal: Nontender, nondistended, soft. BS present. Extremities: Foot as noted below. Patient has neuropathy of the foot bilaterally and diminished sensation soft touch, intact sensation to pressure only Results & Data Results & Data Vital Signs (Past 12 Hours) Vital Signs Temp Pulse Resp BP Pulse Ox O2 Del Method 02/03/23 16:11 36.4 C L 111 H 18 118/79 94 Room Air PG Care Time/CCT Total # of Minutes Spent Total Time Spent with Patient: Total time spent is greater than 50% in coordination of care (as documented) at patient's floor/unit and/or counseling patient: Coding Level of Care Code 32199 INT INP/OBS CARE 375MIN Diagnoses Acute osteomyelitis of toe of left foot M86.172 Ulcer of left great toe due to diabetes mellitus E11.621; L97.529 Diabetes mellitus with microalbuminuria E11.29; R80.9 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
[2023-02-03 19:20] LABS: C Reactive Protein 3.14 mg/dl (0-0.5)
--- NOTE | 2023-02-03 19:49 | CT Scan Report ---
Exam(s): CT LEFT FOOT Without Contrast EXAM: CT Left Lower Extremity Without Intravenous Contrast, Foot CLINICAL HISTORY: Reason for exam: toe infection, ?osteo. TECHNIQUE: Axial computed tomography images of the left foot without intravenous contrast. CTDI is 15.57 mGy and DLP is 319.44 mGy-cm. Automated exposure control was utilized for the study. A dose lowering technique was utilized adhering to the principles of ALARA. COMPARISON: No relevant prior studies available. FINDINGS: Ulcer of the great toe with subcutaneous edema that extends to the distal phalanx. Mild erosive changes of the distal phalanx tuft, concerning for early osteomyelitis. No fluid collection or abscess. No metatarsal fracture. No Lisfranc malalignment. Intact medial and lateral malleoli papered osseous demineralization. IMPRESSION: Early osteomyelitis of the great toe distal tuft. Electronically signed by: Paresh Overton MD 02/03/23 19:48 PM
[2023-02-03] MEDS ORDERED: GLUCOSE 40% GEL 15 GM TUBE PO PRN (21:05)
[2023-02-03] MEDS ORDERED: PHARMACY GLYCEMIC MGMT CONSULT PRN (21:05)
[2023-02-03] MEDS ORDERED: ACETAMINOPHEN 325 MG TAB PO PRN (21:05)
[2023-02-03] MEDS ORDERED: CARBOHYDRATES FOR HYPOGLYCEMIA PO PRN (21:05)
[2023-02-03] MEDS ORDERED: GLUCOSE 10 TAB/TUBE PO PRN (21:05)
[2023-02-03] MEDS ORDERED: LANTUS PER UNIT CHARGE SQ SCH (21:05)
[2023-02-03] MEDS ORDERED: DEXTROSE 50% 50 ML SYRINGE IV PRN (21:05)
[2023-02-03] MEDS ORDERED: GLUCAGON FOR INJ 1 MG VIAL SQ PRN (21:05)
[2023-02-03] MEDS ORDERED: MELATONIN 3 MG TAB PO PRN (21:47)
--- NOTE | 2023-02-03 22:01 | Orthopedic Consultation ---
Date of Consultation February 03, 2023 Assessment & Plan (1) Acute osteomyelitis of toe of left foot: Patient seen, evaluated, and treated. Reviewed diagnostic imaging showing (+) OM of distal tuft of left hallux This was reviewed with Patient who elects for left distal hallux amputation. Patient scheduled for 4pm 02/04/23. Thank you for allowing me to participate in the care of this Patient. (2) Ulcer of left great toe due to diabetes mellitus: History of Present Illness Attending Physician: Trent Bajwa MD History of Present Illness Patient is a type II diabetic 72-year-old male who is seen at bedside for left diabetic foot ulcer with osteomyelitis. Patient has a past medical history significant for COPD, type II DM, and neuropathy. Patient was seen by his PCP 3 weeks ago with an infection of his left toe which did not improve with Neosporin, for which she is taken 1 dose of Levaquin, and who had an outpatient x-ray concerning for osteo and was referred to the ER. Allergies Allergy/AdvReac Type Severity Reaction Status Date / Time No Known Allergies Allergy Verified 02/02/23 14:38 Home Medications Medication Instructions Recorded Confirmed Type aspirin 81 mg tablet 81 mg PO QPM 03/06/19 02/02/23 History blood sugar diagnostic (OneTouch #10 ea 03/06/19 02/02/23 History Ultra Blue Test Strip) lancets ([employer] MobileTouch UltraSoft #50 ea 03/06/19 02/02/23 History Lancets) albuterol sulfate 90 mcg/actuation 2 puff inhalation Q6H PRN 05/04/21 02/02/23 Rx aerosol inhaler shortness of breath or wheezing #8.5 grams blood-glucose meter (OneTouch #1 ea 04/06/22 02/02/23 Rx Ultra2 Meter kit) lancets 30 gauge ([employer] MobileTouch Delica #100 ea 04/07/22 02/02/23 Rx Lancets) blood sugar diagnostic (OneTouch #100 ea 04/09/22 02/02/23 Rx Ultra Test strips) sildenafil (pulm.hypertension) 20 100 mg PO UD PRN Sexual Activity 06/29/22 02/02/23 Rx mg tablet #90 tabs umeclidinium 62.5 mcg-vilanterol 1 inh inhalation DAILY #180 ea 10/05/22 02/02/23 Rx 25 mcg/actuation powdr for inhalation (Anoro Ellipta) allopurinol 300 mg tablet See Rx Instructions .Route 10/08/22 02/02/23 Rx .COMPLEX #90 tabs metformin 1,000 mg tablet 1,000 mg PO BID #180 tabs 10/08/22 02/02/23 Rx olmesartan 20 mg tablet 20 mg PO DAILY #90 tabs 10/08/22 02/02/23 Rx pantoprazole 40 mg tablet,delayed 40 mg PO QAM #90 tabs 10/08/22 02/02/23 Rx release rosuvastatin 10 mg tablet 10 mg PO DAILY #90 tabs 10/08/22 02/02/23 Rx sildenafil 100 mg tablet 100 mg PO DAILY PRN sexual 10/08/22 02/02/23 Rx activity #30 tabs semaglutide 0.25 mg or 0.5 mg (2 0.5 mg (0.736 mL) subcut ONCE #3 mL 01/10/23 02/02/23 Rx mg/3 mL) subcutaneous pen injector (Ozempic) levofloxacin 500 mg tablet 500 mg PO Q24H 2 weeks #14 tabs 02/02/23 02/02/23 Rx Patient History Medical History Arthritis of right hip 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 COPD (chronic obstructive pulmonary disease) Ex-cigarette smoker Hiatal hernia Hypercholesteremia Hypertension Low iron REASON FOR UPCOMING PROCEDURE Prostate cancer (12/15/17) "Benign prostate biopsy April 18, 2013 Rising PSA, pretreatment PSA 6.180 Status post ultrasound-guided biopsies December 15, 2017 Adenocarcinoma the prostate Eufemia 3+3 Prostate volume 36.4 Prostate density 0.097." On 01/11/18 09:17 Rose Mary Lee wrote "Rising PSA, pretreatment PSA 6.180 Status post ultrasound-guided biopsies December 15, 2017 Adenocarcinoma the prostate Eufemia 3+3 Prostate volume 36.4 Prostate density 0.097." Trochanteric bursitis, right hip CORTISONE INJECTION 2 WEEKS AGO Trochanteric bursitis, right hip Surgical History History of colonoscopy (11/17/09) one hyperplastic, recheck in 10 years History of endoscopy S/P LASIK surgery of both eyes Family History Mother Tobacco use Congestive heart failure (CHF) Father COPD (chronic obstructive pulmonary disease) Tobacco use BPH (benign prostatic hyperplasia) Grandfather Prostate cancer Denies family history of Ovarian cancer Myocardial infarction Breast cancer Colorectal cancer Social History Smoking Status: Former smoker Tobacco Type: Cigarettes Age Started Using Tobacco: 20; Age Quit Using Tobacco: 52; packs per day: 2; Second Hand Exposure: Yes; Do You Dip or Chew Tobacco: No; Hx Alcohol Use: Yes Alcohol Intake Frequency: 2-3 x/Week Hx Substance Use: No Preferred Language: Albanian Communication Ability: Effective Visual Impairment: No Limitations Hearing Ability: Normal Licensing Analyst Required: No Beliefs That Will Affect Care: None marital status: Current Living Situation: Spouse current occupational status: employed current occupation: [employer] Feels Safe at Home: Yes Childhood Exposure to Second-Hand Smoke: Yes Diet: regular caffeine: Yes Dental Care, Regularly: Yes Physical Activity Frequency: 3-4 Times per Week Seatbelt Use: always Sunscreen Use: Yes Assistive Devices: None Review of Systems Review of Systems: All systems reviewed & are unremarkable except as noted in HPI & below Physical Exam Constitutional: cooperative and comfortable Eyes: normal visual webb by confrontation Neck: normal visual inspection and trachea midline Respiratory: normal respiratory effort Cardiovascular: Rate/Rhythm: regular rate and regular rhythm Musculoskeletal: Extremities: extremities normal to inspection Skin: + ulcer (Left foot) Neurologic: moves all extremities (Absent epicritic sensation) Psychiatric: Orientation: alert and oriented x 3 Results & Data Vital Signs (Past 12 Hours) Vital Signs Temp Pulse Pulse Resp BP BP Pulse Ox 02/03/23 19:30 85 19 136/77 98 02/03/23 19:25 81 02/03/23 18:00 79 18 125/68 95 02/03/23 16:11 36.4 C L 111 H 18 118/79 94 O2 Del Method 02/03/23 19:30 02/03/23 19:25 02/03/23 18:00 Room Air 02/03/23 16:11 Room Air Diagnostic Findings EXAM: CT Left Lower Extremity Without Intravenous Contrast, Foot CLINICAL HISTORY: Reason for exam: toe infection, ?osteo. TECHNIQUE: Axial computed tomography images of the left foot without intravenous contrast. CTDI is 15.57 mGy and DLP is 319.44 mGy-cm. Automated exposure control was utilized for the study. A dose lowering technique was utilized adhering to the principles of ALARA. COMPARISON: No relevant prior studies available. FINDINGS: Ulcer of the great toe with subcutaneous edema that extends to the distal phalanx. Mild erosive changes of the distal phalanx tuft, concerning for early osteomyelitis. No fluid collection or abscess. No metatarsal fracture. No Lisfranc malalignment. Intact medial and lateral malleoli papered osseous demineralization. IMPRESSION: Early osteomyelitis of the great toe distal tuft. Electronically signed by: Paresh Overton MD 02/03/23 19:48 PM
[2023-02-03] MEDS: PLASMA-LYTE A 1,000 ML IV SCH (22:06)
[2023-02-03] MEDS: BENZONATATE 100 MG CAPSULE PO PRN (22:39)
[2023-02-03] MEDS: VANCOMYCIN HCL 1,000 MG in SODIUM CHLORIDE 0.9% 250 ML IV SCH (23:11)
[2023-02-04] MEDS: PIPERACILLIN/TAZOBACTAM 4.5 GM in DEXTROSE 5% 100 ML IV SCH ×3 (00:25→16:29)
[2023-02-04] MEDS: INSULIN ASPART PER UNIT CHARGE SC SCH ×5 (00:25→20:40)
[2023-02-04 07:34] LABS: Basophils # (auto) 0.03 K/uL (0-0.2); Basophils % (auto) 0.4 %; Eosinophils # (auto) 0.33 K/uL (0-0.50); Eosinophils % (auto) 4.2 %; Hematocrit (blood only) 38.3 % (42.0-52.0); Hemoglobin 12.4 g/dl (14.0-18.0); Immature Granulocytes # (auto) 0.05 K/uL (0.01-0.20); Immature Granulocytes % (auto) 0.6 %; Lymphocytes # (auto) 1.25 K/uL (1.2-3.4); Lymphocytes % (auto) 16.1 %; Mean Corpuscular Hemoglobin 29.6 pg (25.0-34.0); Mean Corpuscular Hgb Conc 32.4 g/dL (32.0-36.0); Mean Corpuscular Volume 91.4 fL (80.0-100.0); Mean Platelet Volume 9.8 fL (9.4-12.4); Monocytes # (auto) 0.63 K/uL (0.11-0.59); Monocytes % (auto) 8.1 %; Neutrophils # (auto) 5.48 K/uL (1.40-6.50); Neutrophils % (auto) 70.6 %; Platelet Count 243 K/uL (130-400); RDW Coefficient of Variation 13.2 % (11.5-14.5); RDW Standard Deviation 44.4 fL (36.4-46.3); Red Blood Count 4.19 M/uL (4.70-6.10); White Blood Count 7.77 K/ul (4.8-10.8)
[2023-02-04 07:51] LABS: BUN Creatinine Ratio 13.4 (10-20); C Reactive Protein 2.49 mg/dl (0-0.5); Calcium 8.3 mg/dl (8.6-10.3); Est GFR (African American) 103.8 ml/min; Est GFR (Non-African American) 89.6 ml/min; Potassium 4.8 mmol/L (3.5-5.1)
[2023-02-04] MEDS: PLASMA-LYTE A 1,000 ML IV SCH (08:00)
[2023-02-04] MEDS: allopurinoL 300 MG TAB PO SCH (09:00)
[2023-02-04] MEDS: ROSUVASTATIN CALCIUM 10 MG TAB PO SCH (09:00)
[2023-02-04] MEDS: BENZONATATE 100 MG CAPSULE PO PRN ×2 (09:00→20:49)
[2023-02-04] MEDS: UMECLIDINIUM/VILANTEROL 62.5/25MCG 7 PUFFS/INHALER INH SCH (09:00)
[2023-02-04] MEDS: PANTOprazole 40 MG TAB PO SCH (09:00)
--- NOTE | 2023-02-04 09:14 | Pharmacy Report ---
Pharmacy PK ABX Note - Date of Service February 04, 2023 - Assessment and Plan Assessment 72 year old M receiving Vancomycin and Zosyn for treatment of left foot osteomyelitis. * Day #1 of antimicrobial therapy. * PMHx significant for TD2M with neuropathy. * HPI: 3 week history of ulcer on L big toe which did not improve with neosporing. Had one dose of Levaquin. Outpatient XR concerning for OM so referred to ED. * Labs/Vitals: Afebrile. ESR/CRP elevated. Procal normal. Lactate was 2.3 but trended down to 1.7 after fluids. SCr 0.98 yesterday, 0.82 today which is near baseline. Mild leukocytosis of 10.9k but trending down to 7.8k today. * Micro: Blood and toe wound cultures pending. Patient to go to OR today for amputation so likely will take OR cultures. * Imaging: CT suspicious for early OM of L big toe. Plan Vancomycin * Loading dose: 1750 mg IV x 1 * Maintenance dose: 1000 mg IV every 12 hours * Regimen is predicted to achieve target AUC/JORGE of 400-600 mg/L.hr * Random level ordered for: 02/05/23 Zosyn * 4.5 g IV every 8 hours - appropriate Pharmacy will continue to follow and will adjust dose/frequency as necessary. Thank you. Pharmacy has transitioned to AUC monitoring for vancomycin. AUC/JORGE is the preferred PK/PD target and is associated with decreased risk of nephrotoxicity compared to traditional trough targets.
--- NOTE | 2023-02-04 09:26 | Pharmacy Report ---
Pharmacy Glycemic Short Note 2 - Date of Service February 04, 2023 - Glycemic Short BSG Results (Last 24 hours): 02/03/23 02/03/23 02/04/23 16:32 20:41 00:22 Glucose 135 H POC Glucose 107 H 93 02/04/23 02/04/23 05:48 06:42 Glucose 92 POC Glucose 92 OUTPATIENT ANTIDIABETIC REGIMEN: * Metformin 1000 mg PO BID * Ozempic 0.5 mg SC once weekly * HbA1c: ASSESSMENT: * 72 yo M admitted on 02/03/23 secondary to left big toe osteomyelitis. Pharmacy has been consulted to assist with inpatient glycemic management. Patient is a well controlled Type 2 diabetic as an outpatient. Please refer to outpatient regimen and most recent HbA1c above. * BSG upon transfer to the floor last evening was 107 mg/dL. Patient refused basal dose that overnight pharmacist had entered. Did not receive any bolus insulin as well given NPO status. * Plan is for patient to have a toe amputation today around 1600. Therefore, patient will be NPO for most of the day today. * Continue with previously ordered bolus insulin regimen. However, fasting BSG was 92 mg/dL this AM without any insulin. Therefore, will discontinue any further basal insulin. Patient may require basal insulin in the future especially if perioperative steroids are administered. PLAN FOR INPATIENT GLYCEMIC CONTROL: * Hold outpatient oral diabetes medications * Basal insulin * Hold * Bolus insulin * NovoLog per scale ACHS or Q6hrs while NPO * Goal Range: Low 110 mg/dL - High 140 mg/dL * Correction Factor: 40 mg/dL/unit * Nutritional / Prandial insulin per carb ratio of 1 unit per 15 grams CHO consumed
[2023-02-04 12:04] LABS: Estimated Average Glucose 111 mg/dl; Hemoglobin A1C 5.5 % (4.5-5.6)
[2023-02-04] MEDS: VANCOMYCIN HCL 1,000 MG in SODIUM CHLORIDE 0.9% 250 ML IV SCH ×2 (12:27→23:00)
[2023-02-04] MEDS ORDERED: BUPIVACAINE 0.5 % 5 MG/1 ML MPF 30ML VIAL ONE (15:17)
[2023-02-04] MEDS ORDERED: fentaNYL citrate PF 100 MCG/2 ML VIAL ONE (15:56)
[2023-02-04] MEDS ORDERED: MIDAZOLAM HCL 1 MG/ML 2ML VIAL ONE (15:56)
--- NOTE | 2023-02-04 16:17 | History & Physical Bridge Note ---
Date of Service February 04, 2023 History & Physical Bridge Note I have examined the patient, reviewed the History & Physical and in the interval since the performance of the History & Physical I have noted the following changes of clinical significance: no changes noted
[2023-02-04] MEDS ORDERED: ePHEDrine sulfate 50 MG/ML AMP IV PRN (16:51)
[2023-02-04] MEDS ORDERED: fentaNYL citrate PF 100 MCG/2 ML VIAL IV PRN (16:51)
[2023-02-04] MEDS ORDERED: ONDANSETRON INJ 2 MG/ML 2 ML VIAL IV PRN (16:51)
[2023-02-04] MEDS ORDERED: ATROPINE SULFATE 0.1 MG/ML 10ML SYR IV PRN (16:51)
--- NOTE | 2023-02-04 16:51 | Anesthesiology Consultation ---
Date of Service February 04, 2023 Assessment & Plan Chart Review Chart Review: Acceptable Risk for Surgery and Patient NOT seen in Pre Admission Testing Consults Requested none ASA ASA3 Proposed Anesthesia Anesthesia Type: MAC Risk / Benefits Reviewed With: PT / POA / Parent / Guardian, Accepts Plan and Informed Consent Obtained History Surgery Operation Date: 02/04/23 07:00 Proposed Procedures p Left Great Toe Amputation - Piyush Kimbrough, DPM, MS Height/Weight Height: 6 ft Weight: 91.4 kg Allergies Allergy/AdvReac Type Severity Reaction Status Date / Time No Known Allergies Allergy Verified 02/02/23 14:38 Medications Home Medications Medication Instructions Recorded Confirmed Last Taken aspirin 81 mg tablet 81 mg PO QPM 03/06/19 02/02/23 11/12/20 blood sugar diagnostic (OneTouch #10 ea 03/06/19 02/02/23 Unknown Ultra Blue Test Strip) lancets (OneTouch UltraSoft #50 ea 03/06/19 02/02/23 Unknown Lancets) albuterol sulfate 90 mcg/actuation 2 puff inhalation Q6H PRN 05/04/21 02/02/23 Unknown aerosol inhaler shortness of breath or wheezing #8.5 grams blood-glucose meter (OneTouch #1 ea 04/06/22 02/02/23 Unknown Ultra2 Meter kit) lancets 30 gauge (OneTouch Delica #100 ea 04/07/22 02/02/23 Unknown Lancets) blood sugar diagnostic (OneTouch #100 ea 04/09/22 02/02/23 Unknown Ultra Test strips) sildenafil (pulm.hypertension) 20 100 mg PO UD PRN Sexual Activity 06/29/22 02/02/23 Unknown mg tablet #90 tabs umeclidinium 62.5 mcg-vilanterol 1 inh inhalation DAILY #180 ea 10/05/22 02/02/23 Unknown 25 mcg/actuation powdr for inhalation (Anoro Ellipta) allopurinol 300 mg tablet See Rx Instructions .Route 10/08/22 02/02/23 Unknown .COMPLEX #90 tabs metformin 1,000 mg tablet 1,000 mg PO BID #180 tabs 10/08/22 02/02/23 Unknown olmesartan 20 mg tablet 20 mg PO DAILY #90 tabs 10/08/22 02/02/23 Unknown pantoprazole 40 mg tablet,delayed 40 mg PO QAM #90 tabs 10/08/22 02/02/23 Unknown release rosuvastatin 10 mg tablet 10 mg PO DAILY #90 tabs 10/08/22 02/02/23 Unknown sildenafil 100 mg tablet 100 mg PO DAILY PRN sexual 10/08/22 02/02/23 Unknown activity #30 tabs semaglutide 0.25 mg or 0.5 mg (2 0.5 mg (0.736 mL) subcut ONCE #3 mL 01/10/23 02/02/23 Unknown mg/3 mL) subcutaneous pen injector (Ozempic) levofloxacin 500 mg tablet 500 mg PO Q24H 2 weeks #14 tabs 02/02/23 02/02/23 Unknown Active Medications Generic Name Dose Route Start Last Admin Trade Name Freq PRN Reason Stop Dose Admin Allopurinol 300 mg 02/04/23 09:00 02/04/23 09:00 Allopurinol 300 Mg Tab PO 03/06/23 08:59 300 mg DAILY SEBASTIAN Administration Benzonatate 100 mg 02/03/23 21:47 02/04/23 09:00 Benzonatate 100 Mg Capsule PO 03/05/23 21:46 100 mg TID PRN Administration Cough Vancomycin HCl 1,000 mg/ 270 mls @ 200 mls/hr 02/04/23 00:00 02/04/23 13:54 Sodium Chloride IV 03/18/23 00:00 Infused Q12H SEBASTIAN Infusion Piperacillin Sod/Tazobactam 120 mls @ 30 mls/hr 02/04/23 00:00 02/04/23 16:29 Sod 4.5 gm/ Dextrose IV 03/18/23 00:00 30 mls/hr Q8H SEBASTIAN Administration Protocol Insulin Aspart 0 units 02/04/23 00:00 02/04/23 12:23 Insulin Aspart Per Unit Charge SC 03/06/23 00:00 Not Given Q6 SEBASTIAN Melatonin 3 mg 02/03/23 21:47 02/03/23 22:39 Melatonin 3 Mg Tab PO 03/05/23 21:46 3 mg HS PRN Administration Sleep Pantoprazole Sodium 40 mg 02/04/23 09:00 02/04/23 09:00 Pantoprazole 40 Mg Tab PO 03/06/23 08:59 40 mg QAM SEBASTIAN Administration Rosuvastatin Calcium 10 mg 02/04/23 09:00 02/04/23 09:00 Rosuvastatin Calcium 10 Mg Tab PO 03/06/23 08:59 10 mg DAILY SEBASTIAN Administration Umeclidinium/Vilanterol 1 puffs 02/04/23 09:00 02/04/23 09:00 Umeclidinium/Vilanterol 62.5/25mcg 7 Puffs/Inhaler INH 03/06/23 08:59 1 puffs DAILY SEBASTIAN Administration NPO Date Last Intake of Fluids: 02/03/23 Time Last Intake of Fluids: 21:00 Last Intake of Fluids Comment: sips Date Last Intake of Solids: 02/03/23 Time Last Intake of Solids: 12:00 Past Medical History Medical History Arthritis of right hip 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 COPD (chronic obstructive pulmonary disease) Ex-cigarette smoker Hiatal hernia Hypercholesteremia Hypertension Low iron REASON FOR UPCOMING PROCEDURE Prostate cancer (12/15/17) "Benign prostate biopsy April 18, 2013 Rising PSA, pretreatment PSA 6.180 Status post ultrasound-guided biopsies December 15, 2017 Adenocarcinoma the prostate [place] 3+3 Prostate volume 36.4 Prostate density 0.097." On 01/11/18 09:17 Rose Mary Lee wrote "Rising PSA, pretreatment PSA 6.180 Status post ultrasound-guided biopsies December 15, 2017 Adenocarcinoma the prostate Eufemia 3+3 Prostate volume 36.4 Prostate density 0.097." Trochanteric bursitis, right hip CORTISONE INJECTION 2 WEEKS AGO Trochanteric bursitis, right hip Exercise / Class Metabolic Activity II 4-5 Yardwork/Stairs/Walk up hill Past Family History Family History Mother Tobacco use Congestive heart failure (CHF) Father COPD (chronic obstructive pulmonary disease) Tobacco use BPH (benign prostatic hyperplasia) Grandfather Prostate cancer Denies family history of Ovarian cancer Myocardial infarction Breast cancer Colorectal cancer Past Surgical History Surgical History History of colonoscopy (11/17/09) one hyperplastic, recheck in 10 years History of endoscopy S/P LASIK surgery of both eyes Past Anesthesia History No Hx of Anesthesia Complications and No Family Hx of Anesthesia Complications History of PONV No Hx of PONV and No Hx of Motion Sickness Social History Smoking Status: Former smoker tobacco type: cigarettes Do You Dip or Chew Tobacco: No Hx Alcohol Use: Yes Alcohol type: beer alcohol intake frequency: a few times a month Hx Substance Use: No substance use type: does not use Physical Exam Vital Signs Last Vital Signs Temp 36.9 C 02/04/23 15:40 Pulse 79 02/04/23 15:40 Resp 19 02/04/23 15:40 BP 148/81 H 02/04/23 15:40 Pulse Ox 94 02/04/23 15:40 O2 Del Method Room Air 02/04/23 15:40 ENMT Mouth: no dentition abnormality Thyromental Distance: > or= 3.5 Finger Breadths Mallampati Class: II Neck normal visual inspection Respiratory normal respiratory effort Auscultation: lungs clear to auscultation bilaterally Cardiovascular Rate/Rhythm: regular rate and regular rhythm Psychiatric Orientation: alert Testing Laboratory Results 02/04/23 06:42 02/04/23 06:42 PT 11.1 Seconds (9.0-12.0) 02/03/23 16:32 INR 1.0 (0.9-1.1) 02/03/23 16:32 Hemoglobin A1c 5.5 % (4.5-5.6) 02/04/23 06:42 02/03/23 17:00 Gram Stain - Final Toe Wound Culture - Preliminary Pin-point growth present, reincubating. 02/04/23 02/04/23 11:58 05:48 POC Glucose 95 92
[2023-02-04] MEDS ORDERED: PROPOFOL IV EMULSION 10 MG/ML 20 ML VIAL IV ONE (17:01)
[2023-02-04] MEDS ORDERED: ONDANSETRON INJ 2 MG/ML 2 ML VIAL ONE (17:01)
--- NOTE | 2023-02-04 17:22 | Post Operative Brief Note ---
Immediate Post Op Note v1 Date of Surgery February 04, 2023 Pre & Post Diagnosis Operation Date: 02/04/23 07:00 Pre-Op Diagnosis: Acute osteomyelitis of toe of left great foot Post-Op Diagnosis: Acute osteomyelitis of toe of left great foot I identified the patient and participated in the time-out.: Yes Procedure Operation Date: 02/04/23 07:00 Actual Procedures p Left Great Toe Amputation - Piyush Kimbrough DPM, [place] Surgeon Piyush Kimbrough DPM, MS Network Support Specialist none Estimated Blood Loss 0 Findings Consistent with Post-Op Diagnosis consistent with post operative findings
--- NOTE | 2023-02-04 17:53 | Anesthesiology Progress Note ---
Date of Service February 04, 2023 Anesthesia Post Procedure Vital Signs Vital Signs: Temp Pulse Pulse Pulse Resp BP BP 02/04/23 17:40 36.8 C 79 18 114/63 02/04/23 17:30 65 15 109/65 02/04/23 17:23 36.1 C L 85 20 110/69 02/04/23 15:40 36.9 C 79 19 148/81 H 02/04/23 15:13 36.8 C 69 18 139/76 02/04/23 07:39 36.8 C 82 20 143/80 H 02/03/23 21:30 02/03/23 21:30 36.7 C 78 18 164/91 H 02/03/23 19:30 85 19 136/77 02/03/23 19:25 81 02/03/23 18:00 79 18 BP Pulse Ox O2 Del Method O2 Flow Rate 02/04/23 17:40 95 Nasal Cannula 2 02/04/23 17:30 93 Nasal Cannula 2 02/04/23 17:23 92 Room Air 02/04/23 15:40 94 Room Air 02/04/23 15:13 94 Room Air 02/04/23 07:39 94 Room Air 02/03/23 21:30 Room Air 02/03/23 21:30 96 Room Air 02/03/23 19:30 98 02/03/23 19:25 02/03/23 18:00 125/68 95 Room Air Transfer of Care Handoff Completed per policy Notes Mental Status: alert / awake / arousable Patient Amnestic to Procedure: Yes Nausea / Vomiting: adequately controlled Pain: adequately controlled Airway Patency, RR, SpO2: stable & adequate BP & HR: stable & adequate Hydration State: stable & adequate Anesthetic Complications: no major complications apparent
[2023-02-04] MEDS ORDERED: Nursing to Pharmacy Communication SCH (18:00)
--- NOTE | 2023-02-04 21:07 | Hospitalist Progress Note ---
Date of Service February 04, 2023 Assessment & Plan (1) Acute osteomyelitis of toe of left foot: Plan: left great toe s/p amputation of distal phalanx by Dr Piyush Kimbrough, podiatry bone sent for culture WBAT to heel only ("partial" WB) pain control will need to clarify with Dr Kimbrough if he feels source control was achieved if yes will not need further IV abx long term care social worker if no then consider ID consultation cont zosyn/vanco Dr Kimbrough to order post-op surgical shoe ultimately will need diabetic shoes (2) Ulcer of left great toe due to diabetes mellitus: Plan: with underlying osteomyelitis of distal phalanx s/p amputation today see above appreciate Dr Kimbrough's consultation and expertise (3) Diabetes mellitus with microalbuminuria: Plan: all a1c's chronically are <6% this admission - 5.5% are the pt's a1c's accurate? 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: Plan: check a b12 level to ensure no other cause of his neuropathy (5) Hypercholesteremia: Plan: cont crestor daily (6) Hypertension: Plan: hold ARB perioperatively until BMP tomorrow am is available and creatinine found to be normal Plan DVT proph - if ok with podiatry start asa 81mg BID tomorrow or other chemical DVT proph updated at bedside Admission and Anticipated Discharge Date Admission Date: February 03, 2023 Subjective saw patient post-op from his left great toe distal phalanx amputation denied any pain of left foot resting comfortably had dinner and tolerated such no chest pain no dyspnea does c/o chronic b/l foot numbness, worse on left Review of Systems Review of Systems: gen - no fevers or chills cv - no chest pain pulm - no dyspnea or cough GI - no nausea or vomiting Physical Exam Physical Exam: gen - pleasant, resting comfortably, NAD mouth - MMM neck - no JVD heart - RRR, s1 s2, no murmur lungs - CTA b/l abd - soft NT ND BS+ ext - left foot wrapped in dressings; DP and post tib pulses L foot palpable and 2+; right foot pulses 2+ b/l; no edema right foot or ankle Results & Data Results & Data Vital Signs (Past 12 Hours) Vital Signs Temp Pulse Pulse Pulse Resp BP BP 02/04/23 20:04 36.8 C 72 18 116/79 02/04/23 19:29 02/04/23 19:03 37.2 C 72 18 112/73 02/04/23 18:31 36.9 C 65 18 129/74 02/04/23 18:03 36.7 C 68 16 129/71 02/04/23 17:40 36.8 C 79 18 114/63 02/04/23 17:30 65 15 109/65 02/04/23 17:23 36.1 C L 85 20 110/69 02/04/23 15:40 36.9 C 79 19 148/81 H 02/04/23 15:13 36.8 C 69 18 139/76 Pulse Ox O2 Del Method O2 Flow Rate 02/04/23 20:04 93 Nasal Cannula 1 02/04/23 19:29 Room Air 02/04/23 19:03 94 Nasal Cannula 1 02/04/23 18:31 95 Room Air 02/04/23 18:03 96 Nasal Cannula 2 02/04/23 17:40 95 Nasal Cannula 2 02/04/23 17:30 93 Nasal Cannula 2 02/04/23 17:23 92 Room Air 02/04/23 15:40 94 Room Air 02/04/23 15:13 94 Room Air Laboratory Results Laboratory Results - last 48 hr 02/03/23 02/03/23 02/03/23 16:32 16:32 16:32 WBC 10.88 H RBC 4.88 Hgb 14.3 Hct 44.0 MCV 90.2 MCH 29.3 MCHC 32.5 RDW Std Deviation 43.7 RDW Coeff of Ayde 13.2 Plt Count 301 MPV 10.2 Immature Gran % (Auto) 0.5 Neut % (Auto) 73.9 Lymph % (Auto) 13.7 [place] % (Auto) 7.7 Eos % (Auto) 3.8 Baso % (Auto) 0.4 Neut # (Auto) 8.05 H Lymph # (Auto) 1.49 [place] # (Auto) 0.84 H Eos # (Auto) 0.41 Baso # (Auto) 0.04 Immature Gran # (Auto) 0.05 ESR 53 H PT 11.1 INR 1.0 Sodium Potassium Chloride Carbon Dioxide Anion Gap BUN Creatinine Est Cr Clr Drug Dosing Est GFR ( Amer) Est GFR (Non-Af Amer) BUN/Creatinine Ratio Glucose POC Glucose Estimat Average Glucose Hemoglobin A1c Lactate Calcium Total Bilirubin AST ALT Alkaline Phosphatase C-Reactive Protein Total Protein Albumin Globulin Albumin/Globulin Ratio Vitamin B12 Procalcitonin Random Vancomycin SARS-CoV-2, RNA, NAAT 02/03/23 02/03/23 02/03/23 16:32 16:32 16:32 WBC RBC Hgb Hct MCV MCH MCHC RDW Std Deviation RDW Coeff of Ayde Plt Count MPV Immature Gran % (Auto) Neut % (Auto) Lymph % (Auto) [place] % (Auto) Eos % (Auto) Baso % (Auto) Neut # (Auto) Lymph # (Auto) [place] # (Auto) Eos # (Auto) Baso # (Auto) Immature Gran # (Auto) ESR PT INR Sodium 140 Potassium 4.3 Chloride 107 Carbon Dioxide 21 Anion Gap 12 H BUN 17 Creatinine 0.99 Est Cr Clr Drug Dosing 76.2 Est GFR ( Amer) 89.1 Est GFR (Non-Af Amer) 76.8 BUN/Creatinine Ratio 17.2 Glucose 135 H POC Glucose Estimat Average Glucose Hemoglobin A1c Lactate 2.3 H* Calcium 9.6 Total Bilirubin 0.4 AST 16 ALT 16 Alkaline Phosphatase 95 C-Reactive Protein 3.14 H Total Protein 8.0 Albumin 4.4 Globulin 3.6 Albumin/Globulin Ratio 1.2 Vitamin B12 Procalcitonin < 0.05 Random Vancomycin SARS-CoV-2, RNA, NAAT 02/03/23 02/03/23 02/03/23 17:24 19:29 20:41 WBC RBC Hgb Hct MCV MCH MCHC RDW Std Deviation RDW Coeff of Ayde Plt Count MPV Immature Gran % (Auto) Neut % (Auto) Lymph % (Auto) [place] % (Auto) Eos % (Auto) Baso % (Auto) Neut # (Auto) Lymph # (Auto) [place] # (Auto) Eos # (Auto) Baso # (Auto) Immature Gran # (Auto) ESR PT INR Sodium Potassium Chloride Carbon Dioxide Anion Gap BUN Creatinine Est Cr Clr Drug Dosing Est GFR ( Amer) Est GFR (Non-Af Amer) BUN/Creatinine Ratio Glucose POC Glucose 107 H Estimat Average Glucose Hemoglobin A1c Lactate 1.7 Calcium Total Bilirubin AST ALT Alkaline Phosphatase C-Reactive Protein Total Protein Albumin Globulin Albumin/Globulin Ratio Vitamin B12 Procalcitonin Random Vancomycin SARS-CoV-2, RNA, NAAT NEGATIVE 02/04/23 02/04/23 02/04/23 00:22 05:48 06:42 WBC 7.77 RBC 4.19 L Hgb 12.4 L Hct 38.3 L MCV 91.4 MCH 29.6 MCHC 32.4 RDW Std Deviation 44.4 RDW Coeff of Ayde 13.2 Plt Count 243 MPV 9.8 Immature Gran % (Auto) 0.6 Neut % (Auto) 70.6 Lymph % (Auto) 16.1 [place] % (Auto) 8.1 Eos % (Auto) 4.2 Baso % (Auto) 0.4 Neut # (Auto) 5.48 Lymph # (Auto) 1.25 [place] # (Auto) 0.63 H Eos # (Auto) 0.33 Baso # (Auto) 0.03 Immature Gran # (Auto) 0.05 ESR PT INR Sodium Potassium Chloride Carbon Dioxide Anion Gap BUN Creatinine Est Cr Clr Drug Dosing Est GFR ( Amer) Est GFR (Non-Af Amer) BUN/Creatinine Ratio Glucose POC Glucose 93 92 Estimat Average Glucose Hemoglobin A1c Lactate Calcium Total Bilirubin AST ALT Alkaline Phosphatase C-Reactive Protein Total Protein Albumin Globulin Albumin/Globulin Ratio Vitamin B12 Procalcitonin Random Vancomycin SARS-CoV-2, RNA, NAAT 02/04/23 02/04/23 02/04/23 06:42 06:42 11:58 WBC RBC Hgb Hct MCV MCH MCHC RDW Std Deviation RDW Coeff of Ayde Plt Count MPV Immature Gran % (Auto) Neut % (Auto) Lymph % (Auto) [place] % (Auto) Eos % (Auto) Baso % (Auto) Neut # (Auto) Lymph # (Auto) [place] # (Auto) Eos # (Auto) Baso # (Auto) Immature Gran # (Auto) ESR PT INR Sodium 139 Potassium 4.8 Chloride 108 H Carbon Dioxide 25 Anion Gap 6 BUN 11 Creatinine 0.82 Est Cr Clr Drug Dosing 92.0 Est GFR ( Amer) 103.8 Est GFR (Non-Af Amer) 89.6 BUN/Creatinine Ratio 13.4 Glucose 92 POC Glucose 95 Estimat Average Glucose 111 Hemoglobin A1c 5.5 Lactate Calcium 8.3 L Total Bilirubin AST ALT Alkaline Phosphatase C-Reactive Protein 2.49 H Total Protein Albumin Globulin Albumin/Globulin Ratio Vitamin B12 Procalcitonin Random Vancomycin SARS-CoV-2, RNA, NAAT Diagnostic Findings blood cx's thus far negative PG Care Time/CCT Total # of Minutes Spent Total Time Spent with Patient: Total time spent is greater than 50% in coordination of care (as documented) at patient's floor/unit and/or counseling patient: Coding Level of Care Code 01962 SUB INP/OBS CARE 2/35MIN Diagnoses Acute osteomyelitis of toe of left foot M86.172 Ulcer of left great toe due to diabetes mellitus E11.621; L97.529 Diabetes mellitus with microalbuminuria E11.29; R80.9 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
--- NOTE | 2023-02-04 22:02 | Operative Report ---
Post Operative Report Pre & Post Diagnosis Operation Date: 02/04/23 07:00 Pre-Op Diagnosis: Acute osteomyelitis of toe of left great foot Post-Op Diagnosis: Acute osteomyelitis of toe of left great foot I identified the patient and participated in the time-out.: Yes Procedure Operation Date: 02/04/23 07:00 Actual Procedures p Left Great Toe Amputation - Piyush Kimbrough DPM, MS Surgeon Piyush Kimbrough DPM, MS Quality Control Chemist none Estimated Blood Loss 0 Findings Consistent with Post-Op Diagnosis Consistent with pre operative diagnosis Specimens 1.) Deep culture swab 2.) Left hallux distal phalanx bone micro 3.) Left hallux path Description of Procedure History of present illness: Patient is a type II diabetic, 72 year old male who is seen for treatment of osteomyelitis of the left first distal phalanx. Patient notes a diabetic foot ulcer open for multiple weeks. Patient relates minimal discomfort. All questions answered. Discussed procedure in detail and postoperative recovery. All potential risks, benefits, complications, alternatives, rehab, potential for incomplete relief of symptoms, need for further surgery, DVT, PE, , persistent pain, swelling, scarring, weakness, neurovascular, wound complications and potential for amputations were discussed with patient. Unwanted outcomes such as, but not limited to were reviewed including under correction, overcorrection, return of deformity, infection. All questions were answered. Patient has decided to proceed with procedure as indicated. Preoperative diagnosis: Diabetic ulcer osteomyelitis left first distal phalanxl Postoperative diagnosis: same Name of operation: Amputation left great toe Surgeon Dr. Kimbrough Quality Control Chemist: None Anesthesia: local with monitored anesthesia care Hemostasis: pneumatic ankle tourniquet Estimated blood loss: minimal Procedure in detail: Under mild sedation the patient was brought in the operating room placed on the operating table in supine position. A pneumatic ankle tourniquet was then placed about the patient's left ankle. Following IV sedation local anesthesia was obtained about the left utilizing 15 cc of a one-to-one mixture of 1% lidocaine plain and 0.5% Marcaine plain. The foot was then prepped scrubbed and draped in usual aseptic manner. An Esmarch bandage was utilized to exsanguinate the patient's left foot and the pneumatic ankle tourniquet was then inflated. Attention was then directed to a nonhealing diabetic ulcer on the left hallux where a distal diabetic foot great toe ulcer is present and probes to bone. A fishmouth incision was created utilizing a sharp, sterile, #15 blade. The incision which was deepened through subcutaneous tissue using sharp blunt dissection. Care was taken to identify and retract all vital neurovascular structures. All bleeders were ligated and cauterized necessary. At this time the distal left hallux, distal phalanx bone was removed and placed on the back table. The distal portion of the left hallux was sent to pathology. A portion of the first left distal phalanx was sent to microbiology. Copious amounts of sterile normal saline were utilized to flush the incision site. The skin was then primarily closed utilizing 3-0 nylon in horizontal suture mattress techniques as well as simple suture closure. Upon completion of the procedure the incision was dressed with Betadine soaked Adaptic followed by sterile compressive dressing consisting of 4 x 4's Farooq Kerlix ABD the pneumatic ankle tourniquet was inflated and a prompt hyperemic response was noted to all digits of the left foot. The Patient tolerated the procedure and anesthesia well. He was transferred to recovery room vital signs stable and vascular status. Following a period of postoperative monitoring the patient will be re-admitted to the floor resuming all pre-operative orders. I attest to the content of the Intraoperative Record and any orders documented therein. Any exceptions are noted below.
[2023-02-05] MEDS: PIPERACILLIN/TAZOBACTAM 4.5 GM in DEXTROSE 5% 100 ML IV SCH ×3 (00:38→15:54)
[2023-02-05] MEDS: allopurinoL 300 MG TAB PO SCH (07:36)
[2023-02-05] MEDS: UMECLIDINIUM/VILANTEROL 62.5/25MCG 7 PUFFS/INHALER INH SCH (07:36)
[2023-02-05] MEDS: PANTOprazole 40 MG TAB PO SCH (07:37)
[2023-02-05] MEDS: ROSUVASTATIN CALCIUM 10 MG TAB PO SCH (07:37)
[2023-02-05 08:20] LABS: Basophils # (auto) 0.03 K/uL (0-0.2); Basophils % (auto) 0.4 %; Eosinophils # (auto) 0.35 K/uL (0-0.50); Eosinophils % (auto) 4.9 %; Hematocrit (blood only) 39.6 % (42.0-52.0); Hemoglobin 13.1 g/dl (14.0-18.0); Immature Granulocytes # (auto) 0.04 K/uL (0.01-0.20); Immature Granulocytes % (auto) 0.6 %; Lymphocytes # (auto) 1.23 K/uL (1.2-3.4); Lymphocytes % (auto) 17.1 %; Mean Corpuscular Hemoglobin 29.6 pg (25.0-34.0); Mean Corpuscular Hgb Conc 33.1 g/dL (32.0-36.0); Mean Corpuscular Volume 89.6 fL (80.0-100.0); Mean Platelet Volume 9.9 fL (9.4-12.4); Monocytes # (auto) 0.52 K/uL (0.11-0.59); Monocytes % (auto) 7.2 %; Neutrophils # (auto) 5.03 K/uL (1.40-6.50); Neutrophils % (auto) 69.8 %; Platelet Count 230 K/uL (130-400); RDW Coefficient of Variation 13.2 % (11.5-14.5); RDW Standard Deviation 43.4 fL (36.4-46.3); Red Blood Count 4.42 M/uL (4.70-6.10)
[2023-02-05 08:38] LABS: BUN Creatinine Ratio 10.2 (10-20); Calcium 8.8 mg/dl (8.6-10.3); Creatinine Clr Calc Pharmacy 85.7 ml/min; Est GFR (African American) 100.9 ml/min; Potassium 4.5 mmol/L (3.5-5.1)
[2023-02-05] MEDS: INSULIN ASPART PER UNIT CHARGE SC SCH ×4 (08:49→20:59)
[2023-02-05] MEDS: VANCOMYCIN HCL 1,000 MG in SODIUM CHLORIDE 0.9% 250 ML IV SCH (11:39)
--- NOTE | 2023-02-05 21:54 | Hospitalist Progress Note ---
Date of Service February 05, 2023 Assessment & Plan (1) Acute osteomyelitis of toe of left foot: Plan: left great toe s/p amputation of distal phalanx by Dr Piyush Kimbrough, podiatry bone sent for culture WBAT to heel only ("partial" WB) pain control will need to clarify with Dr Kimbrough if he feels source control was achieved if yes will not need further IV abx assisted if no then consider ID consultation cont zosyn/vanco Dr Kimbrough to order post-op surgical shoe ultimately will need diabetic shoes Awaiting cultures. (2) Ulcer of left great toe due to diabetes mellitus: Plan: with underlying osteomyelitis of distal phalanx s/p amputation today see above appreciate Dr Kimbrough's consultation and expertise (3) Diabetes mellitus with microalbuminuria: Plan: all a1c's chronically are <6% this admission - 5.5% are the pt's a1c's accurate? 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 Review of Systems Review of Systems: All systems reviewed & are unremarkable except as noted in HPI & below Physical Exam Physical Exam: gen - pleasant, resting comfortably, NAD mouth - MMM neck - no JVD heart - RRR, s1 s2, no murmur lungs - CTA b/l abd - soft NT ND BS+ ext - left foot wrapped in dressings; DP and post tib pulses L foot palpable and 2+; right foot pulses 2+ b/l; no edema right foot or ankle Results & Data Results & Data Vital Signs (Past 12 Hours) Vital Signs Temp Pulse Resp BP BP Pulse Ox O2 Del Method 02/05/23 20:39 36.8 C 86 18 120/78 97 Room Air 02/05/23 19:17 Room Air 02/05/23 15:14 36.9 C 77 18 121/79 96 Nasal Cannula 02/05/23 11:42 36.7 C 69 16 116/70 94 Nasal Cannula O2 Flow Rate 02/05/23 20:39 02/05/23 19:17 02/05/23 15:14 2 02/05/23 11:42 2 PG Care Time/CCT Total # of Minutes Spent Total Time Spent with Patient: Total time spent is greater than 50% in coordination of care (as documented) at patient's floor/unit and/or counseling patient: Coding Level of Care Code 08258 SUB INP/OBS CARE 235MIN Diagnoses Acute osteomyelitis of toe of left foot M86.172 Ulcer of left great toe due to diabetes mellitus E11.621; L97.529 Diabetes mellitus with microalbuminuria E11.29; R80.9 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
[2023-02-05] MEDS: VANCOMYCIN HCL 1,250 MG in SODIUM CHLORIDE 0.9% 250 ML IV SCH (22:41)
[2023-02-06] MEDS: PIPERACILLIN/TAZOBACTAM 4.5 GM in DEXTROSE 5% 100 ML IV SCH ×3 (00:10→16:06)
[2023-02-06 06:34] LABS: Basophils # (auto) 0.05 K/uL (0-0.2); Basophils % (auto) 0.6 %; Eosinophils # (auto) 0.46 K/uL (0-0.50); Eosinophils % (auto) 5.7 %; Hematocrit (blood only) 39.8 % (42.0-52.0); Hemoglobin 13.1 g/dl (14.0-18.0); Immature Granulocytes # (auto) 0.04 K/uL (0.01-0.20); Immature Granulocytes % (auto) 0.5 %; Lymphocytes # (auto) 1.39 K/uL (1.2-3.4); Lymphocytes % (auto) 17.1 %; Mean Corpuscular Hemoglobin 29.5 pg (25.0-34.0); Mean Corpuscular Hgb Conc 32.9 g/dL (32.0-36.0); Mean Corpuscular Volume 89.6 fL (80.0-100.0); Mean Platelet Volume 10.1 fL (9.4-12.4); Monocytes # (auto) 0.71 K/uL (0.11-0.59); Monocytes % (auto) 8.7 %; Neutrophils # (auto) 5.48 K/uL (1.40-6.50); Neutrophils % (auto) 67.4 %; Platelet Count 260 K/uL (130-400); RDW Coefficient of Variation 13.1 % (11.5-14.5); RDW Standard Deviation 43.1 fL (36.4-46.3); Red Blood Count 4.44 M/uL (4.70-6.10); White Blood Count 8.13 K/ul (4.8-10.8)
[2023-02-06 06:58] LABS: BUN Creatinine Ratio 13.8 (10-20); C Reactive Protein 2.94 mg/dl (0-0.5); Calcium 8.9 mg/dl (8.6-10.3); Creatinine Clr Calc Pharmacy 86.7 ml/min; Est GFR (African American) 101.3 ml/min; Est GFR (Non-African American) 87.4 ml/min; Potassium 4.1 mmol/L (3.5-5.1)
[2023-02-06] MEDS: UMECLIDINIUM/VILANTEROL 62.5/25MCG 7 PUFFS/INHALER INH SCH (08:33)
[2023-02-06] MEDS: ROSUVASTATIN CALCIUM 10 MG TAB PO SCH (08:33)
[2023-02-06] MEDS: allopurinoL 300 MG TAB PO SCH (08:33)
[2023-02-06] MEDS: PANTOprazole 40 MG TAB PO SCH (08:33)
[2023-02-06] MEDS: INSULIN ASPART PER UNIT CHARGE SC SCH ×4 (08:35→21:00)
--- NOTE | 2023-02-06 08:57 | Orthopedic Progress Note ---
Date of Service February 06, 2023 Assessment & Plan (1) Acute osteomyelitis of toe of left foot: Plan: Patient seen, evaluated, and treated. Patient status post day #2 right hallux amputation DOS: 02/04/23 Clear margins with source control expected from hallux amputation. Awaiting cultures and sensitivities for out Patient Abx. Tentative plan 2 wks PO abx. Thank you for allowing me to participate in the care of this Patient. Admission and Anticipated Discharge Date Admission Date: February 03, 2023 Subjective Patient seen at bedside in no distress resting comfortably. Patient has no complaints. Patient is status post day #2 left hallux amputation. Review of Systems Review of Systems: All systems reviewed & are unremarkable except as noted in HPI & below Physical Exam Constitutional: WD/WN, vitals as above cooperative and comfortable Eyes: normal visual webb by confrontation Neck: trachea midline Respiratory: normal respiratory effort Cardiovascular: Rate/Rhythm: regular rate and regular rhythm Vessels: p osterior tibial pulses present and dorsalis pedis pulses present Musculoskeletal: Extremities: extremities normal to inspection Skin: normal turgor (incision site well co-apted. Sutures in place.) Neurologic: moves all extremities (Decreased epicritic sensation.) Psychiatric: Orientation: alert and oriented x 3 Results & Data Vital Signs (Past 12 Hours) Vital Signs Temp Pulse Resp BP Pulse Ox O2 Del Method 02/06/23 07:39 36.5 C 67 18 137/77 95 Room Air Diagnostic Findings [address] [place] [address] / Director: Trent Birmingham M.D. Clinical Laboratory Report Name: BRYN CUELLAR Acct: [id number] Status: ADM [place] : 1950 [facility] [place]: 02/03/23 Age: 72 Sex: M Dis Date: Loc: Medical/Surgical/Ortho [address] [place] [address]/Bed: W352-2 Spec: [id number] Collected: 02/04/23 Received: 02/04/[address]: Piyush Kimbrough, DPM, MS Copy To: Trent Bajwa MD Source: Toe,Left Great OV Order: Ordered: Aer/Stella Cult/Sm Comments: Comment 2. Left hallux Procedure Result Verified Site Gram Stain Final 02/05/23 Gram Stain Result Many Gram Positive Cocci Many WBCs Seen Aero/Stella Cult Preliminary 02/05/23 Pin-point growth present, reincubating. Name: BRYN CUELLAR JR : 1950 PAGE 1 Printed: 02/06/23 0858 END OF REPORT
[2023-02-06] MEDS: VANCOMYCIN HCL 1,250 MG in SODIUM CHLORIDE 0.9% 250 ML IV SCH ×2 (12:31→23:29)
--- NOTE | 2023-02-06 14:57 | Hospitalist Progress Note ---
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 Ordered incentive spirometry and flutter valve as patient likely has atelectasis from laying in bed. Clinically does not appear to be a pneumonia as lungs sound clear, and normal vitals. (2) Ulcer of left great toe due to diabetes mellitus: Plan: with underlying osteomyelitis of distal phalanx s/p amputation today see above appreciate Dr Kimbrough's consultation and expertise (3) Diabetes mellitus with microalbuminuria: Plan: all a1c's chronically are <6% this admission - 5.5% are the pt's a1c's accurate? 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 He does have an intermittent productive cough. Review of Systems Review of Systems: All systems reviewed & are unremarkable except as noted in HPI & below Physical Exam Physical Exam: gen - pleasant, resting comfortably, NAD mouth - MMM neck - no JVD heart - RRR, s1 s2, no murmur lungs - CTA b/l abd - soft NT ND BS+ ext - left foot wrapped in dressings; Results & Data Results & Data Vital Signs (Past 12 Hours) Vital Signs Temp Pulse Resp BP Pulse Ox O2 Del Method 02/06/23 08:10 Room Air 02/06/23 07:39 36.5 C 67 18 137/77 95 Room Air PG Care Time/CCT Total # of Minutes Spent Total Time Spent with Patient: Total time spent is greater than 50% in coordination of care (as documented) at patient's floor/unit and/or counseling patient: Coding Level of Care Code 84571 SUB INP/OBS CARE 2/35MIN Diagnoses Acute osteomyelitis of toe of left foot M86.172 Ulcer of left great toe due to diabetes mellitus E11.621; L97.529 Diabetes mellitus with microalbuminuria E11.29; R80.9 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
[2023-02-06] MEDS ORDERED: ENOXAPARIN INJ 40 MG/0.4 ML SYR SQ SCH (15:00)
[2023-02-07] MEDS: PIPERACILLIN/TAZOBACTAM 4.5 GM in DEXTROSE 5% 100 ML IV SCH ×2 (01:06→07:34)
[2023-02-07] MEDS: PANTOprazole 40 MG TAB PO SCH (08:24)
[2023-02-07] MEDS: ROSUVASTATIN CALCIUM 10 MG TAB PO SCH (08:24)
[2023-02-07] MEDS: UMECLIDINIUM/VILANTEROL 62.5/25MCG 7 PUFFS/INHALER INH SCH (08:25)
[2023-02-07] MEDS: allopurinoL 300 MG TAB PO SCH (08:25)
[2023-02-07] MEDS: INSULIN ASPART PER UNIT CHARGE SC SCH ×2 (09:13→12:42)
[2023-02-07] MEDS: VANCOMYCIN HCL 1,250 MG in SODIUM CHLORIDE 0.9% 250 ML IV SCH (12:08)
--- NOTE | 2023-02-07 13:01 | Discharge Summary ---
Date of Service February 07, 2023 Admission HPI Per Admitting Provider Esha Downs is a 72-year-old male with past medical hx of type II DM and neuropathy who presented to his PCP 3 weeks ago with an infection of his left toe which did not improve with Neosporin, for which she is taken 1 dose of Levaquin, and who had an outpatient x-ray concerning for osteo and was referred to the ER. 3 weeks ago noticed some blood and an ulcer on the LEFT big toe. Was treating with neosporin but did not improve at all. Has neuropathy so only feels pressur ein his foot, has not had any pain in the toe. No fevers, chills, or sweats. No nausea, vomtiing, or diarrhea. BSGs have actually been well controlled and recently started ozempic and BSG has been running 79-110. Saw PCP for routine checkup yesterday and got an XR of it today which showed osteo and referred esha to the ER. He did take a levaquin dose which was prescribed empirically. No hx of heart disease Hx COPD- on Anoro and well controlled. No recent wheezing, although had a summer cold a few weeks ago. Mild residual cough productive for clear sputum overall improving. No wheezing Medical History: Reviewed Medications: Reviewed Surgical History: Reviewed Family history: Reviewed Allergies: Reviewed. NKDA. Social History: Former smoker in [id number] years, rare social etoh use. Code Status: Full Code Principal Diagnosis Osteomyelitis left first toe Discharge Exam General-alert and oriented x3, no fevers, no chills HEENT-head atraumatic and normocephalic, pupils equal and reactive to light, extraocular muscles intact Neck-no lymphadenopathy or thyromegaly, trachea midline Chest-clear to auscultation percussion. No rales wheezing or rhonchi Cardiac-regular rate and rhythm, normal S1 and S2 Abdomen-normal bowel sounds, nontender, no hepatosplenomegaly Extremities-left forefoot is heavily bandaged Neuro-cranial nerves II through XII intact, motor and sensory function within normal limits, strength symmetrical , no focal deficits Psych-normal affect, normal mood Discharge Data Allergies Allergy/AdvReac Type Severity Reaction Status Date / Time No Known Allergies Allergy Verified 02/02/23 14:38 Consultations 02/03/23 17:08 Consult Podiatry Routine 02/03/23 17:44 ED Decision to Admit Stat Procedures Performed Operation Date: 02/04/23 07:00 Actual Procedures p Left Great Toe Amputation - Piyush Kimbrough, ANUJM, MS Ordered Studies 02/03/23 17:07 CT foot LT wo con Stat Hospital Course (1) Acute osteomyelitis of toe of left foot: left great toe . s/p amputation of distal phalanx by Dr Piyush Kimbrough, podiatry . Cultures nondiagnostic showing only pinpoint growth. We will continue with oral ciprofloxacin anyway at discharge for 2 weeks (2) Ulcer of left great toe due to diabetes mellitus: with underlying osteomyelitis of distal phalanx. s/p amputation this admission (3) Diabetes mellitus with microalbuminuria: Hemoglobin A1c is 5.5%. Metformin held at admission. Will restart at discharge. ADA diet (4) Hypercholesteremia: Stable. Continue Crestor (5) Hypertension: Stable. Continue ARB therapy Plan Home today with a left foot walking boot. Continue ciprofloxacin for 2 more weeks. Follow-up with podiatry Total Time Total Time Spent Total Time Spent (In Minutes): 40 minutes Discharge Plan Discharge Items Patient Disposition: Home - Self-Care Reason For Visit: diabetic osteomyelitis Discharge Diagnosis: Osteomyelitis left first toe Activity: As commented below Activity Comment: Wear walking boot left foot until instructed to do otherwise by podiatry Non-emergency contact: Primary Care Provider Call non-emergency contact if: you have any medication questions and your symptoms worsen Follow-up/Referrals: Nick Clark, DO [Primary Care Provider] - Diet: Carb Consistent or DM2 and Heart Healthy Addtl Attending Provider Instructions: Take Cipro antibiotic for 2 weeks. All other medications remain the same Pending Studies at Discharge: No Stand-Alone Forms: [employer] [place], Smoking Cessation Medications and DC Order Prescriptions: New ciprofloxacin HCl [Cipro] 500 mg tablet 500 mg PO BID Qty: 28 0RF Continued (DME) blood-glucose meter [[employer]Touch Ultra2 Meter] Kit See Rx Instructions .MEDSUPPLY Qty: 1 0RF Rx Instructions: check once daily prior to meals (DME) lancets [OneTouch Delica Lancets] 30 gauge misc See Rx Instructions .MEDSUPPLY Qty: 100 5RF Rx Instructions: test once daily prior to meal (DME) OneTouch Ultra Test Strip See Rx Instructions .MEDSUPPLY Qty: 100 5RF Rx Instructions: test once daily prior to meal DX E11.40 sildenafil (pulm.hypertension) 20 mg tablet 100 mg PO UD PRN (Reason: Sexual Activity) Qty: 90 3RF Rx Instructions: 100 mg PO one hour prior to intercourse; Anoro Ellipta 62.5-25 mcg/actuation blister with device 1 inh inhalation DAILY Qty: 180 3RF Ozempic 0.25 mg or 0.5 mg (2 mg/3 mL) pen injector 0.5 mg subcut ONCE Qty: 3 2RF Rx Instructions: inject 0.5mg once a week SQ aspirin 81 mg tablet 81 mg PO QPM (DME) OneTouch Ultra Blue Test Strip strip See Dose Instructions .ROUTE .MEDSUPPLY Qty: 10 Patient Comments: Test once daily Rx Instructions: As directed (DME) lancets [[facility] UltraSoft Lancets] [facility] See Dose Instructions .ROUTE .MEDSUPPLY Qty: 50 Patient Comments: Test once daily Rx Instructions: As directed olmesartan 20 mg tablet 20 mg PO DAILY Qty: 90 3RF metformin 1,000 mg tablet 1,000 mg PO BID Qty: 180 3RF pantoprazole 40 mg tablet,delayed release (DR/EC) 40 mg PO QAM Qty: 90 3RF rosuvastatin 10 mg tablet 10 mg PO DAILY Qty: 90 3RF allopurinol 300 mg tablet See Rx Instructions .ROUTE .COMPLEX Qty: 90 3RF Dose Instruction: Take 1 tablet by mouth once daily Rx Instructions: Take 1 tablet by mouth once daily sildenafil 100 mg tablet 100 mg PO DAILY PRN (Reason: sexual activity) Qty: 30 5RF Rx Instructions: administer 30 minutes to 4 hours before activity albuterol sulfate 90 mcg/actuation HFA aerosol inhaler 2 puff inhalation Q6H PRN (Reason: shortness of breath or wheezing) Qty: 8.5 3RF Discontinued levofloxacin 500 mg tablet 500 mg PO Q24H 14 Days Qty: 14 0RF Discharge Orders: Discharge Order (Routine); Ordered 02/07/23 Ordered By: Dexter Caballero Admission Data Admit Date/Time: 02/03/23 18:14 Attending Provider: Dexter Caballero Admit Provider: Trent Bajwa Primary Care Provider: Nick Clark Other Providers: Piyush Kimbrough ; Trent Bajwa Coding Level of Care Code 60195 INP/OBS DISCH >30 MIN Diagnoses Acute osteomyelitis of toe of left foot M86.172 Ulcer of left great toe due to diabetes mellitus E11.621; L97.529 Diabetes mellitus with microalbuminuria E11.29; R80.9 Hypercholesteremia E78.00 Hypertension I10
== END 2023-02-07 14:44 | disposition home or self-care (01) | DRG 617 ==
LOC: ED 16:04 → SUATTDRO 18:14 → 3W 18:14